=== PATIENT | male | born 1990 | race Caucasian/White ===

== ENCOUNTER 2021-01-29 01:55 | Emergency (ER) | payer OTHER, SELFPAY ==
[2021-01-29] VITALS (32 sets, daily range): BP systolic 107–132; BP diastolic 73–92; PULSE 61–91; RESP 10–20; TEMP 36.2–36.4; O2SAT 94–99
[2021-01-29] MEDS: EPINEPHrine HCL INJ 1 MG/ML AMPUL 0.3 MG IM (02:32)
[2021-01-29] MEDS: methylPREDNISolone SOD SUCC 125 MG VIAL IV PUSH (02:33)
[2021-01-29] MEDS: FAMOTIDINE 20 MG/2 ML VIAL IV PUSH (02:34)
--- NOTE | 2021-01-29 03:40 | PC.NURSE ---
Pt to ED for allergic reaction. Reports awoke approx. 2300 for work and noticed hives. took 25 mg benadryl po and reaction worsened. on arrival, pt has visible hives, edema to right eyelid, lip swelling. unsure what caused this, denies new foods/detergents/lotions/soaps. reports has been taking prEP for HIV prophylaxis x 3 months, and wondering if it could be the medication causing his symptoms. will continue to monitor.
--- NOTE | 2021-01-29 06:04 | ED.ALLEREA ---
HPI - Allergic Reaction General Chief complaint: Allergic Reaction Stated complaint: allergic Rx, facial swelling and hives Time Seen by Provider: 01/29/21 02:04 History of Present Illness HPI narrative: Patient is a 30-year-old male who presents to the ER with concerns for allergic reaction. Reports 30 minutes after he took his Truvada that he takes for PREP he developed swelling to his right eye with rash and swelling on his neck and his arms and hands. Self down his back. No difficulty breathing or swallowing but he feels a fullness in the middle of his throat and is unsure what that is related to. He has had this happen to him several times in the last 2 weeks. Unsure if it is always related to taking his Truvada. He takes no other medications. He does not correlate any food exposures with this. Denies any animals in the house. No new laundry detergent/fabric softeners/body wash/perfumes. He tried taking some Benadryl prior to arrival without improvement. Related Data Allergies Allergy/AdvReac Type Severity Reaction Status Date / Time No Known Allergies Allergy Unverified 01/29/21 02:48 Review of Systems Review of Systems: All systems reviewed & are unremarkable except as noted in HPI and below Constitutional: Constitutional: Denies chills, Denies fever(s) and Denies weakness ENT: Denies nasal congestion and Reports sore throat Cardiovascular: Cardiovascular: Denies chest pain, Denies rapid heart rate and Denies radiating jaw, neck or arm pain Respiratory: Respiratory: Denies cough, Denies dyspnea and Denies wheezing Gastrointestinal: Gastrointestinal: Denies nausea and Denies vomiting Integumentary/Breasts: Skin/Breast: Reports pruritus, Reports erythema and Reports rash PMFSH Past Medical History Medical History (Updated 01/29/21 @ 06:12 by Silvio Dempsey MD) Healthy adult male Surgical History Surgical History (Updated 01/29/21 @ 06:08 by Silvio Dempsey MD) No history of previous surgery Exam Narrative: GENERAL: Well-appearing, well-nourished, and in no acute distress. HEAD: Normocephalic, atraumatic. EYES: PERRL and EOMI. edema of the right eyelid. ENT: Mucous membranes moist. Normal-appearing posterior oropharynx without uvular edema, no tonsillar hypertrophy or exudate. NECK: Supple. Urticarial rash across anterior the neck. CHEST: Clear to auscultation. No respiratory distress. HEART: Regular rate and rhythm. Normal peripheral pulses. ABDOMEN: Soft, nontender, nondistended. EXTREMITIES: Normal range of motion. No edema. SKIN: Warm, dry. Urticarial rash to the upper extremities and chest and back. Primary in the hands for there is redness. No excoriations noted. Welts noted over the antecubital fossa bilaterally. NEURO: Alert and oriented x3. PSYCH: Normal mood and affect. Course Course Emergency Course: Symptoms resolved with epi/Pepcid/Solu-Medrol. Discharge home. Patient will take Benadryl as needed at home. Recommend discontinuing Truvada and talking to his primary care physician about other there is another medication he can take for HIV prophylaxis. Vital Signs Vital signs: Vital Signs Pulse Rate 91 01/29/21 02:20 Respiratory Rate 20 01/29/21 02:20 Blood Pressure 132/80 01/29/21 02:20 Pulse Oximetry 98 01/29/21 02:20 Temperature 97.6 F 01/29/21 02:46 Pulse Rate 76 01/29/21 05:16 Respiratory Rate 20 01/29/21 05:16 Blood Pressure 108/77 01/29/21 05:01 Pulse Oximetry 96 01/29/21 05:16 Discharge Plan Discharge Clinical Impression: Allergic reaction Patient Disposition: Home, Self-Care Condition: Stable Instructions: Urticaria (ED), General Allergic Reaction (ED) Additional Instructions: Contact your PCP eval your allergic reaction. Return the ER if you cannot breathe, you cannot swallow, you have swelling of the lips or tongue, or you have additional concerns. Take Benadryl 25 mg once every 6 hours for the next day.
== END 2021-01-29 06:29 | disposition home or self-care (01) ==
PROVIDERS: Emergency Provider Emergency Medicine; PCP Nurse Practitioner
DX: L27.0 Generalized skin eruption due to drugs and medicaments taken internally (principal); T37.5X5A Adverse effect of antiviral drugs, initial encounter; Z21 Asymptomatic human immunodeficiency virus [HIV] infection status
CPT/HCPCS: 96372; 96374; 96375; 99284; J0171; J2930

== ENCOUNTER 2024-06-19 07:39 | Emergency (ER) | payer OTHER, SELFPAY ==
[2024-06-19 07:39] VITALS: BP 120/68; PULSE 68; RESP 18; TEMP 36.7; O2SAT 95
--- OUTSIDE RECORDS SUMMARY | 2024-06-19 07:44 | XMS_ITS | Encounter Summary ---
Author Organization [facility] Address [address] [place] [address] Phone Care Team Providers Care E Commerce Marketing Manager Name Role Phone Dallas Corbett DO Primary Care Provider Kevin Donnelly MD Unavailable [phone] Encounter Details Date Type Department Care Team (Late st Contact Info) Description 12/19/2022 Orders Only [facility] [phone] Scanning, Provider Social History Tobacco Use Types Packs/Day Years Used Date Smoking Tobacco: Never Smokeless Tobacco: Never Sex and Gender Information Value Date Recorded Sex Assigned at Not on file Legal Sex Male 2:48 PM MEDICAL BILLER/CODER Gender Identity Not on file Sexual Orientation Not on file documented as of this encounter Plan of Treatment Not on file documented as of this encounter Procedures Procedure Name Priority Date/Time Associated Diagnosis Comments SCAN - RADIOLOGY/IMAGING 12/19/2022 documented in this encounter Results * SCAN - RADIOLOGY/IMAGING (12/19/2022) Anatomical Region Laterality Modality Other us Provider Scanning Final Result documented in this encounter Visit Diagnoses Not on filedocumented in this encounter Care Teams E Commerce Marketing Manager Relationship Specialty Start Date End Date Dallas Corbett DO [address] [place] [address] PCP - General Internal Medicine 09/11/22 [place] [address] [place] [address] Surgeon Orthopedic Surgery 06/04/24 documented as of this encounter
--- OUTSIDE RECORDS SUMMARY | 2024-06-19 07:44 | XMS_ITS | Referral Summary ---
Author Organization [facility] Address [address] [place] [address] Care Team Providers Care Wheel And Axle Inspector Name Role Phone Dallas Corbett DO Primary Care Provider Kevin Donnelly MD Unavailable [phone] Encounters Date Type Department Care Team Description 06/16/2024 8:30 AM HOME APPLIANCE INSTALLER Office Visit [facility] Orthopaedic Surgery [address] [place] [address] [address] [place] [address] Kevin Donnelly MD Bilateral hand numbness (Primary Dx) 06/04/2024 9:45 AM HOME APPLIANCE INSTALLER - 06/04/2024 10:15 AM HOME APPLIANCE INSTALLER Surgery [facility] [address] [place] [address] Kevin Donnelly MD RELEASE CARPAL TUNNEL - BILATERAL 06/04/2024 9:49 AM HOME APPLIANCE INSTALLER Anesthesia Event [facility] [address] [place] [address] Isabell Diaz MD Gangloff, Kerry Marie, NP 06/04/2024 8:23 AM HOME APPLIANCE INSTALLER - 06/04/2024 11:15 AM HOME APPLIANCE INSTALLER Hospital Encounter [facility] [address] [place] [address] Kevin Donnelly MD Bilateral carpal tunnel syndrome (Primary Dx) Discharge Disposition: Discharge to home or self care 05/15/2024 3:20 PM HOME APPLIANCE INSTALLER Office Visit [facility] Orthopaedic Surgery [address] [facility] 6[address] [place] [address] [place] [address] Kevin Donnelly MD Bilateral hand numbness (Primary Dx) from Last 3 Months Allergies Active Allergy Reactions Criticality Noted Date Comments Nufaavpue-Vndip-3,3-Galact ose (Alpha-Gal) Hives Medium 05/19/2024 05/26/24: Patient is able to tolerate dairy products Medications emtricitabine-t enofovir disoproxil fumerate (TRUVADA) 200-300 mg per tablet Take 1 tablet by mouth nightly 4 Active acetaminophen (TYLENOL) 325 mg tablet Take 2 tablets (650 mg total) by mouth every 6 (six) hours as needed for pain Active sertraline (ZOLOFT) 50 mg tablet Take 1 tablet (50 mg total) by mouth daily 5 Active sertraline (ZOLOFT) 25 mg tablet Take 1 tablet (25 mg total) by mouth nightly 06/16/19 Discontinu ed(Patient Reported) oxyCODONE (ROXICODONE) 5 mg immediate release tabletIndicatio ns:Pain Take 1 tablet (5 mg total) by mouth every 4 (four) hours as needed for pain 12 tablet 5 06/16/19 Discontinu ed(Patient Reported) Active Problems Problem Noted Date Diagnosed Date Bilateral carpal tunnel syndrome 05/19/2024 Social History Tobacco Use Types Packs/Day Years Used Date Smoking Tobacco: Former Cigarettes Q uit: 2022 Smokeless Tobacco: Former Chew Quit: 2022 Tobacco Cessation:Counseling Given: Not Answered AUDIT-C Answer Date Recorded Q1: How often do you have a drink containing alcohol? Never 05/19/2024 Q2: How many drinks containi ng alcohol do you have on a typical day when you are drinking? Patient does not drink Q3: How often do you have si x or more drinks on one occasion? Never 05/19/2024 Personal Safety Answer Date Recorded Have you ever been in or are you currently in a harmful physical or emotional relationship or is someone making you feel afraid or unsafe? Denies 06/04/2024 Sex and Gender Information Value Date Recorded Sex Assigned at Not on file Legal Sex Male 2:48 PM HOME APPLIANCE INSTALLER Gender Identity Not on file Sexual Orientation Not on file Last Filed Vital Signs Vital Sign Reading Time Taken Comments Blood Pressure 126/68 06/04/2024 10:45 AM HOME APPLIANCE INSTALLER Pulse 54 06/04/2024 10:45 AM HOME APPLIANCE INSTALLER Temperature 36 C (96.8 F) 06/04/2024 10:24 AM HOME APPLIANCE INSTALLER Respiratory Rate 11 06/04/2024 10:4 5 AM HOME APPLIANCE INSTALLER Oxygen Saturation 94% 06/04/2024 10: 45 AM HOME APPLIANCE INSTALLER Inhaled Oxygen Concentration - - Weight 101.4 kg (223 lb 9.6 oz) 06/04/2024 8:53 AM HOME APPLIANCE INSTALLER Height 175.3 cm (5' 9 ) 06/04/2024 8:53 AM HOME APPLIANCE INSTALLER Body Mass Index 33.02 06/04/2024 8:53 AM HOME APPLIANCE INSTALLER Plan of Treatment Not on file Procedures Procedure Name Priority Date/Time Associated Diagnosis Comments RELEASE CARPAL TUNNEL - BILATERAL 06/04/2024 9:52 AM HOME APPLIANCE INSTALLER Bilateral carpal tunnel syndrome from Last 3 Months Insurance [facility] H[facility]/PPO Address: [facility] [address] [place] [address] [facility] CHOICE PLUS [facility] HMO/PPO Address: [place] [address] Care Teams Wheel And Axle Inspector Relationship Specialty Start Date End Date Dallas Corbett DO [address] [place] [address] PCP - General Internal Medicine 09/11/22 [place] [address] [place] [address] Surgeon Orthopedic Surgery 06/04/24
--- OUTSIDE RECORDS SUMMARY | 2024-06-19 07:45 | XMS_ITS | Continuity of Care Document ---
Author Organization [facility] Address [address] [place] [address] Phone Care Team Providers Care Certified First Assistant Name Role Phone Desiree Weiss MD Unavailable Unavailable Allergies, Adverse Reactions, Alerts Substance Reaction Status Criticality No Known Allergies Active No Inform ation Medications Medication Instructions Dosage Effective Dates (start - stop) Status Comments hydroxyzine pamoate 25 mg capsule take 1 capsule by oral route 4 times every day as needed 25 MG - Active fluoxetine 20 mg capsule take 1 capsule by oral route every day 20 MG - Active Problems Condition Type Effective Dates (start - stop) Clini duc Status Comments No Known Problems Procedures Procedure Date Ofc/Outpt Visit, [place] [phone] Advance Directives Directive Yes / No Effective Date File Name No Information Encounters Encounter Description Practice Location Reason(s) For Visit Diagnoses Date Provider Providers Copied on Encounter Ofc/Outpt Visit, [address] [facility], [address] [place] [address], [id number], tel:[phone] [facility] Depression (chief complaint) Depression with anxiety Abhishek Ramírez. [address] [facility], [id number] [place], [id number], [place]. tel:[phone] Family History Family Member Type Diagnosis Age At Onset No Information Payers Payer name Insurance type Covered alliance party ID Authoriza tion(s) BCBS Out of State [id number] Social History Type Description Quantity Date Captured Comments Alcohol Use Details Unknown Caffeine Use Details Unknown Tobacco Use Status Moderate cigarette smoker (10-19 cigs/day) Smoking Status Heavy tobacco smoker Smoking Tobacco Use Details Cigarette: No Details Available Cigarette: 10 Cigarettes per day Sex Male Vital Signs Date / Time: Height Weight BMI Pulse Rate Blood Pressure Temperature Respiratory Rate Body Surface Area Head Circumference Head Circ. Percentile Wt./Zander. Percentile BMI percentile Pulse Ox Inhaled Ox 3:12 PM 68.00 in 101.605 kg (224.00 lbs) 34.0 6 kg/m eter (2) 90 /min 106/63 mm[Hg] 98.00 F 20 /min 97 % 21 % Chief Complaint And Reason For Visit From encounter dated '03/15/2016 15:06'. Depression (chief complaint). Description: This is an initial visit. There is worsening of previously reported symptoms. The patient reports functioning as somewhat difficult. The patient presents with anxious/fearful thoughts, depressed mood, excessive worry, fatigue, racing thoughts and thoughts of or suicide but denies decreased need for sleep, difficulty concentrating, difficulty falling asleep, difficulty staying asleep, increased energy, hallucinations, loss of appetite or paranoia.The patient's risk factors include family history of anxiety, history of depression and relationship problems. The patient's risk factors exclude alcoholism, of a friend or loved one, drug abuse, family history of depression, family history of bipolar disorder, financial worries, history of suicidal attempts and unemployment. The Depression is aggravated by conflict or stress. The patient's relieving factors are alcohol. The Depression is associated with irritability. Additional information: Patient states his family is in [place]; he may be moving back there within the month. He has a history of ADHD and chronic depression with worsening with relationship problems over the last month. Reason For Referral Reason For Referral No Information Plan Of Treatment Date Type Action Status Patient Education Anxiety Disorder: Care Instructions completed History Of Present Illness Encounter Date Complaint History Of Prese nt Illness Depression Depression (comments) Patient pr esents today with a friend accompanying him for support. Patient has been treated remotely with Adderall or Ritalin for ADHD but has never been treated for depression. 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 Depression This is an initi al visit. There is worsening of previously reported symptoms. The patient reports functioning as somewhat difficult. The patient presents with anxious/fearful thoughts, depressed mood, excessive worry, fatigue, racing thoughts and thoughts of or suicide but denies decreased need for sleep, difficulty concentrating, difficulty falling asleep, difficulty staying asleep, increased energy, hallucinations, loss of appetite or paranoia. The patient's risk factors include family history of anxiety, history of depression and relationship problems. The patient's risk factors exclude alcoholism, of a friend or loved one, drug abuse, family history of depression, family history of bipolar disorder, financial worries, history of suicidal attempts and unemployment. The Depression is aggravated by conflict or stress. The patient's relieving factors are alcohol. The Depression is associated with irritability. Additional information: Patient states his family is in [place]; he may be moving back there within the month. He has a history of ADHD and chronic depression with worsening with relationship problems over the last month. Functional Status Date Functional Assessmen t No Information Instructions Date Instruction Additional Infor mation Patient is not felt to be at risk of harming himself or others at this time. He is appropriate for medical therapy. Discussed a trial of fluoxetine 20 mg daily also with Vistaril given for as needed use for anxiety. Indications, benefits and common side effects and adverse reactions are discussed. Patient's questions are answered. He is advised to avoid alcohol while taking the medication. He should schedule follow-up preferably within 3-4 weeks but as he is planning to move back to [place], I did not refer him to primary care. He otherwise will follow-up as needed if problems persist or worsen. Related to Depression with anxiety Assessments Type Assessment Date assessment Depression with anxiety 016 Mental Status Date Cognitive Assessment Orientation - [place] ed to time, place, person, situation. Patient Care Teams Name Effective Dates (start - stop) Status Members No Information
--- OUTSIDE RECORDS SUMMARY | 2024-06-19 07:45 | XMS_ITS | Clinical Summary ---
Author Organization [facility] Address [address] [place] [address] Care Team Providers Care Microbiology Teacher Name Role Phone Faiza Tala GUZMAN Primary Care Provider [phone] Allergies No known active allergies Medications emtricitabine-te nofovir 200-300 MG tablet Take 1 tablet by mouth daily. 06/09/2021 Active Active Problems Problem Noted Date Diagnosed Date Blood in stool 11/08/2017 Change in bowel habit 11/08/2017 Hypocalcemia 11/08/2017 Diarrhea 11/05/2017 Anxiety 07/02/2017 Carpal tunnel syndrome 06/21/2016 Resolved Problems Problem Noted Date Diagnosed Date Resolved Date Encounter for preventive health examination 06/21/2016 01/16/2022 Immunizations Name Administration Dates Next Due HPV GARDASIL 9-VALENT 01/12/2022 Family History Medical History Relation Comments Diabetes Mother Relation Status Comments Father Alive Mother Alive Social History Tobacco Use Types Packs/Day Years Used Date Smoking Tobacco: Every Day Cigarettes Smokeless Tobacco: Never Tobacco Cessation:Counseling Given: No Alcohol Use Standard Drinks/Week Comments Yes 46.7 (1 standard drink = 0.6 oz pure alcohol) drinks every weekend. PHQ-2 Answer Date Recorded PHQ-2 Score - If the patient scores above 3, please move on to questions 3-9 4 11/10/2019 Sex and Gender Information Value Date Recorded Sex Assigned at Not on file Legal Sex Male 7:22 PM CDT Gender Identity Not on file Sexual Orientation Not on file Last Filed Vital Signs Vital Sign Reading Time Taken Comments Blood Pressure 110/70 01/12/2022 8:38 AM CDT Pulse 70 01/12/2022 8:38 AM CDT Temperature 36.1 C (97 F) 01/12/2022 8:38 AM CDT Respiratory Rate 18 01/12/2022 8:38 AM CDT Oxygen Saturation 100% 01/12/2022 8:38 AM CDT Inhaled Oxygen Concentration - - Weight 111.6 kg (246 lb) 01/12/2022 8:38 AM CDT Height 180.3 cm (5' 11 ) 01/12/2022 8:38 AM CDT Body Mass Index 34.31 01/12/2022 8:38 AM CDT Plan of Treatment Health Maintenance Due Date Last Done Comments Annual Physical 1993 Pneumococcal Vaccine: Pediatrics (0 to 5 Years) and At-Risk Patients (6 to 64 Years) (1 of 2 - PCV) 1996 PHQ-2 (Physician [place]) 2002 DTaP, Tdap and Td Vaccines (1 - Tdap) 2009 Hepatitis B Vaccines (1 of 3 - 19+ 3-dose series) 2009 HPV Vaccines (2 - 3-dose SCDM series) 02/09/2022 01/12/2022 COVID-19 Vaccine ( - season) 2024 Influenza Adult (#1) 2024 PHQ-2 (Physician [employer]) 05/07/2024 Hepatitis C Completed 09/03/2017, 08/07, 06/21/2016, Additional history exists Meningococcal B Vaccine Aged Out No l onger eligible based on patient's age to complete this topic Meningococcal Vaccine Aged Out No evelia reed eligible based on patient's age to complete this topic RSV Immunizations Under 20 Months Aged Out No longer eligible based on patient's age to complete this topic Procedures Procedure Name Priority Date/Time Associated Diagnosis Comments HEPATITIS C ANTIBODY Routine 09/03/2017 2:13 PM CDT Encounter for screening for infections with predominantly sexual mode of transmission from Last 3 Months or Most Recently Relevant to Health Maintenance Results * HEPATITIS C ANTIBODY (09/03/2017 2:13 PM CDT) HEPATITIS C AB NON-REACTI VE NON-REACTI VE 09/03/2017 9:27 PM CDT [facility] 09/03/2017 2:13 PM CDT Tala Kendall NP LABORATORY Final Result [facility] [address] [place] [address], from Last 3 Months or Most Recently Relevant to Health Maintenance Insurance [facility] Care Teams Microbiology Teacher Relationship Specialty Start Date End Date Tala [place] [address] PCP - General 11/20/16
--- OUTSIDE RECORDS SUMMARY | 2024-06-19 07:45 | XMS_ITS ---
Author Organization [facility] Address [address] [place] [address] Care Team Providers Care Elementary Education Tutor Name Role Phone Dr. Dallas Corbett Primary Care Provider PrelutskyFam [phone] REASON FOR VISIT RE:Refill prescriptions Social History Sex Assigned At : Social History Observation Description Sex Assigned At Male Encounters Encounter Location Date Provider Diagnosis [facility] [address] [place] [address] 05/31/2024 Dallas Corbett Plan Of Treatment Next Appt Details Provider Name:Dallas tate, 09/16/2024 02:30:00 PM, [address] [place], [address], Progress Notes * Nabil MENDOZADOB:1990 (33 yo M)Acc No.[id number]:05/31/2024 Patient: Daryl ASHLEY Nabil :1990 A ge:33 Y S ex:Male Address:[address] [place] [address] * true * Date: Generated for Printi ng/Faxing/eTransmitting on: 0 06/19/2024 07:44 AM SALES PROFESSIONAL
--- OUTSIDE RECORDS SUMMARY | 2024-06-19 07:45 | XMS_ITS ---
Author Organization [facility] Address [address] [place] [address] Care Team Providers Care Medical Education Manager Name Role Phone Dr. Dallas Corbett Primary Care Provider Prelutsky, Fam Unavailable [phone] AvilesAnabela Unavailable [phone] Allergies No Known Allergies Results Component Value Reference Range Notes Ct/GC TATYANA, Pharyngeal (Not y et reviewed by provider) Interpretation: Performing Lab:[facility] [place], [address] [place] [address], Phone - [phone], Director - Stewart Notes/Report: Clinical Information:SRC: SRC:OL C. trachomatis, TATYANA, Pharyn Negative Negative N. gonorrhoeae, TATYANA, Pharyn Positive Negative . RPR Reviewed date:06/17/2024 01:35:03 PM Interpretation: Performing Lab:[facility] [place], [address] [place] [address], Phone - [phone], Director - PhDIsela Notes/Report: Clinical Information:SRC: SRC:OL RPR Non Reactive Non Reactive HIV 1/2 Antibody Panel 70039 5 Reviewed date:06/17/2024 01:35:03 PM Interpretation: Performing Lab:[facility] [place], [address] [facility], Phone - [phone], Director - PhDIsela Notes/Report: Clinical Information:SRC: SRC:OL HIV Ab/p24 Ag Screen Non Reactive Non Reactive HIV-1/HIV-2 antibodies and HIV-1 p24 antigen were NOT detected. There is no laboratory evidence of HIV infection. HIV Negative HCV Antibody Reviewed date:06/17/2024 01:35:04 PM Interpretation: Performing Lab:[facility] [place], [address] [facility], Phone - [phone], Director - Cordelia Notes/Report: Clinical Information:SRC:UC SRC:OL Hep C Virus Ab Non Reactive Non Reactive HCV antibody alone does not differentiate between previously resolved infection and active infection. Equivocal and Reactive HCV antibody results should be followed up with an HCV RNA test to support the diagnosis of active HCV infection. Chlamydia/GC Amplification Reviewed date:06/18/2024 08:20:17 AM Interpretation: Performing Lab:[facility] [place], [address] [place] [address], Phone - [phone], Director - Stewart Notes/Report: Clinical Information:SRC:UC SRC:OL Chlamydia trachomatis, TATYANA Negative Negative Neisseria gonorrhoeae, TATYANA Negative Negative Ct/GC TATYANA, Rectal Reviewed date:06/18/2024 08:20:17 AM Interpretation: Performing Lab:[facility] [place], [address] [place] [address], Phone - [phone], Director - Stewart Notes/Report: Clinical Information:SRC:UC SRC:OL C. trachomatis, TATYANA, Rectal Negative Negative N. gonorrhoeae, TATYANA, Rectal Negative Negative REASON FOR VISIT ST Pt, 3 month f/u Medications Medication SIG (Take, Route, Fr equency, Duration) Notes Start Date End Date Status valACYclovir HCl 1 GM 1 tablet Orally Tw ice a day for 30 days 08/25/2022 09/16/2024 Active traZODone HCl 50 MG 1-2 tablet at bedtim e as needed Orally Once a day for 30 days 02/14/2024 Active traZODone HCl 50 MG 0.5 - 1 tablet at be dtime as needed Orally Once a day for 30 days 02/14/2024 Active Sertraline HCl 50 MG 1 tablet Orally Onc e a day for 30 days 10/07/2023 Active Social History Sex Assigned At : Social History Observation Description Sex Assigned At Male Vital Signs Temperature 98.4 degrees Fahrenheit 06/16/19 25 Heart Rate 73 /min 06/16/2024 Blood pressure systolic 100 mm Hg 06/16/19 25 Blood pressure diastolic 70 mm Hg 02/10/2 025 Height 69 in 06/16/2024 Weight 228.4 lbs 06/16/2024 BMI 33.73 kg/m2 06/16/2024 Oximetry 97 % 06/16/2024 Encounters Encounter Location Date Provider Diagnosis [facility] [address] [place] [address] 06/16/2024 Anabela Aviles High risk sexual behavior, unspecified type Z72.51 ; Encounter for screening for infections with predominantly sexual mode of transmission Z11.3 ; Encounter for screening for HIV Z11.4 ; Encounter for screening for other viral diseases Z11.59 and MDD (major depressive disorder), recurrent episode, mild F33.0 Assessments Encounter Date Diagnosis (ICD Code) Assessment Notes Treatment Notes Treatment Clinical Notes Section Notes 06/16/2024 High risk sexual behavior, unspecified type (ICD-10 - Z72.51) gave him 3 months samples of Descovy due to nausea 06/16/2024 Encounter for screening for infections with predominantly sexual mode of transmission (ICD-10 - Z11.3) 06/16/2024 Encounter for screening for HIV (ICD-10 - Z11.4) 06/16/2024 Encounter for screening for other viral diseases (ICD-10 - Z11.59) 06/16/2024 MDD (major depressive disorder), recurrent episode, mild (ICD-10 - F33.0) 06/16/2024 Other Time was spent giving the patient safer sex counseling. Condoms were offered to patient. Plan Of Treatment Medication Medication Name Sig Start Date Stop Date Notes Emtricitabine-Tenofovir DF 200-300 MG 1 tablet Orally Once a day 10/07/2023 Sertraline HCl 50 MG 1 tablet Orally Onc e a day for 30 days 10/07/2023 Treatment Notes Assessment Notes High risk sexual behavior, unspecified t ype gave him 3 months samples of Descovy due to nausea Pending Test Test Name Order Date Ct/GC TATYANA, Pharyngeal 06/16/2024 Next Appt Details Follow Up: [address], Reason: Provider Name:Dallas tate, 09/16/2024 02:30:00 PM, [address] [place], [address], Progress Notes * Mery MENDOZA:1990 (33 yo M)Acc No.[id number]:06/16/2024 Progress Notes Patient: Nabil PASCUAL Provider: HAKEEM Moulton :1990 A ge:33 Y S ex:Male Date:06/16/2024 Address:[facility] [address], [place] [address] Pcp:Dr. Dallas Corbett Subjective: * Chief Complaints: * [address] Pt, 3 month f/u. * HPI: G eneral: Gurdeep is here for PrEP follow up along with STD testing. He does admits that since taking oral PrEP he has had some increased nausea. * Medical History: C olonoscopy: No have onescheduled, DEXA (Bone Density) Scan: No, Mammogram: N, Pap: No, AIDS/HIV: No, alcohol abuse: No, acid reflux: No, allergies, food: Yes, allergies, seasonal: Yes, anemia: No, arthritis: No, asthma: No, attention deficit disorder: No, anxiety: Yes, bipolar disorder: No, bladder infections, chronic: No, : No, chronic diarrhea: Yes, cough, chronic: No, dementia: No, depression: Yes, deep vein thrombosis: No, diabetes mellitus: No, drug abuse: No, eating disorder: No, gout: Yes, insomnia: No, inflammatory bowel disease: No, myocardial infarction: No, neuropathy: No, panic attacks: No, osteoporosis: No, pulmonary embolism: No, rheumatoid arthritis: No, seizures: No, sleep apnea: Yes, stroke: No, white coat hypertension: No, Other not mentioned: No. * Medications: T aking traZODone HCl 50 MG Tablet 0.5 - 1 tablet at bedtime as needed Orally Once a day , Taking traZODone HCl 50 MG Tablet 1-2 tablet at bedtime as needed Orally Once a day , Taking valACYclovir HCl 1 GM Tablet 1 tablet Orally Twice a day , stop date 09/16/2024, Taking Emtricitabine-Tenofovir DF 200-300 MG Tablet 1 tablet Orally Once a day , Taking Sertraline HCl 50 MG Tablet 1 tablet Orally Once a day , Discontinued DULoxetine HCl 60 MG Capsule Delayed Release Particles 1 capsule Orally Once a day , Discontinued Apretude(Cabotegravir ER) 600 MG/3ML Suspension Extended Release inject 3 milliliter Intramuscular every two months , Notes to Pharmacist: Changed insurance. Already on maintenance dosing, Discontinued Apretude(Cabotegravir ER) 600 MG/3ML Suspension Extended Release as directed Intramuscular monthly , Medication List reviewed and reconciled with the patient * Allergies: N .K.D.A. * Implants: Objective: * Vitals: T emp:98.4F, HR:73/min, BP:100/70mm Hg, Ht: 69 in, Wt:228.4lbs, Wt-k.6 kg, BMI:33.73Index, Oxygen sat %:97%, Ht-cm: 175.26 cm. Assessment: * Assessment: 1. H igh risk sexual behavior, unspecified type - Z72.51 (Primary) 2 . E ncounter for screening for infections with predominantly sexual mode of transmission - Z11.3 ? 3 . E ncounter for screening for HIV - Z11.4 4 . E ncounter for screening for other viral diseases - Z11.59 5 . M DD (major depressive disorder), recurrent episode, mild - F33.0 Plan: * Treatment: Value Reference Range R WY Non Reactive Non Reactive - * This lab was reviewed by Brian Aviles on 06/17/2024 at 13:35 PM HEADLINE WRITER ?LAB: HIV 1/2 Antibody Panel [id number] (Collection Date & Time - 06/16/2024 11:49 AM)* Value Reference Range H IV Screen 4th Generation wRfx Non Reactive Non Reacti ve - * This lab was reviewed by Brian Aviles on 06/17/2024 at 13:35 PM HEADLINE WRITER ?LAB: HCV Antibody (Collection Date & Time - 06/16/2024 11:49 AM)* Value Reference Range H ep C Virus Ab Non Reactive Non Reactive - * This lab was reviewed by Brian Aviles on 06/17/2024 at 13:35 PM HEADLINE WRITER ?LAB: Chlamydia/GC Amplification (Collection Date & Time - 06/16/2024 11:49 AM)* Value Reference Range C hlamydia trachomatis, TATYANA Negative Negative - * N eisseria gonorrhoeae, TATYANA Negative Negative - * STD testing is negativeThis lab was reviewed by Anabela Aviles on 06/18/2024 at 08:20 AM HEADLINE WRITER ?LAB: Ct/GC TATYANA, Rectal (Collection Date & Time - 06/16/2024 11:49 AM)* Value Reference Range N eisseria gonorrhoeae, TATYANA Negative Negative - * C hlamydia trachomatis, TATYANA Negative Negative - * STD testing is negativeThis lab was reviewed by Anabela Aviles on 06/18/2024 at 08:20 AM HEADLINE WRITER ?LAB: Ct/GC TATYANA, Pharyngeal (Collection Date & Time - 06/16/2024 11:49 AM) Notes: gave him 3 months samples of Descovy due to nausea??2.?Encounter for screening for infections with predominantly sexual mode of transmission?LAB: RPR (Collection Date & Time - 06/16/2024 11:49 AM)* Value Reference Range R WY Non Reactive Non Reactive - * This lab was reviewed by Brian Aviles on 06/17/2024 at 13:35 PM HEADLINE WRITER ?LAB: HIV 1/2 Antibody Panel [id number] (Collection Date & Time - 06/16/2024 11:49 AM)* Value Reference Range H IV Screen 4th Generation wRfx Non Reactive Non Reacti ve - * This lab was reviewed by Brian Aviles on 06/17/2024 at 13:35 PM HEADLINE WRITER ?LAB: HCV Antibody (Collection Date & Time - 06/16/2024 11:49 AM)* Value Reference Range H ep C Virus Ab Non Reactive Non Reactive - * This lab was reviewed by Brian Aviles on 06/17/2024 at 13:35 PM HEADLINE WRITER ?LAB: Chlamydia/GC Amplification (Collection Date & Time - 06/16/2024 11:49 AM)* Value Reference Range C hlamydia trachomatis, TATYANA Negative Negative - * N eisseria gonorrhoeae, TATYANA Negative Negative - * STD testing is negativeThis lab was reviewed by Anabela Aviles on 06/18/2024 at 08:20 AM HEADLINE WRITER ?LAB: Ct/GC TATYANA, Rectal (Collection Date & Time - 06/16/2024 11:49 AM)* Value Reference Range N eisseria gonorrhoeae, TATYANA Negative Negative - * C hlamydia trachomatis, TATYANA Negative Negative - * STD testing is negativeThis lab was reviewed by Anabela Aviles on 06/18/2024 at 08:20 AM HEADLINE WRITER ?LAB: Ct/GC TATYANA, Pharyngeal (Collection Date & Time - 06/16/2024 11:49 AM) 3.?Encounter for screening for HIV?LAB: HIV 1/2 Antibody Panel [id number] (Collection Date & Time - 06/16/2024 11:49 AM)* Value Reference Range H IV Screen 4th Generation wRfx Non Reactive Non Reacti ve - * This lab was reviewed by Brian Aviles on 06/17/2024 at 13:35 PM HEADLINE WRITER 4.?Encounter for screening for other viral diseases?LAB: HCV Antibody (Collection Date & Time - 06/16/2024 11:49 AM)* Value Reference Range H ep C Virus Ab Non Reactive Non Reactive - * This lab was reviewed by Brian Aviles on 06/17/2024 at 13:35 PM HEADLINE WRITER 5.?MDD (major depressive disorder), recurrent episode, mild? Refill Sertraline HCl Tablet, 50 MG, 1 tablet, Orally, Once a day, 30 days, 30, Refills 5.? 6.?Others? Clinical Notes:Time was spent giving the patient safer sex counseling. Condoms were offered to patient.?? * Procedure Codes: 9 9401 P/M ACADEMIC COMPUTING DIRECTOR, INDIV 15 MIN, Modifiers: 25 , 69727 VENIPUNCT, ROUTINE*, G8783 NORMAL BP READING DOC F/U NOT RQR * Follow Up: [address] * Billing Information: * Visit Code: 12755 Office Visit- Est Pt.- Level 4. Modifiers: 25 * Procedure Codes: 09700 P/M ACADEMIC COMPUTING DIRECTOR, INDIV 15 MIN. Modifiers: 80355 VENIPUNCT, ROUTINE*. G8783 NORMAL BP READING DOC F/U NOT RQR. Care Plan Details* * LINE WRITER Sign off status: Completed true * Provider: HAKEEM Moulton Date: 0 06/16/2024 Generated for Printi ng/Faxing/eTransmitting on: 06/19/2024 07:45 AM HEADLINE WRITER History and Physical Notes * HPI (History of Present Illness) Category Sub-Category Detail Notes Category Not es General Gurdeep is here for PrEP follow up along with STD testing. He does admits that since taking oral PrEP he has had some increased nausea.
--- OUTSIDE RECORDS SUMMARY | 2024-06-19 07:45 | XMS_ITS ---
Author Organization [facility] Address [address] [place] [address] Care Team Providers Care Concrete Laborer Name Role Phone Dr. Dallas Corbett Primary Care Provider PrelutskyFam [phone] REASON FOR VISIT [place] Social History Sex Assigned At : Social History Observation Description Sex Assigned At Male Encounters Encounter Location Date Provider Diagnosis [facility] [address] [place] [address] 06/16/2024 Dallas Corbett Plan Of Treatment Next Appt Details Provider Name:Dallas tate, 09/16/2024 02:30:00 PM, [address] [place], [address], Progress Notes * Nabil MENDOZADOB:1990 (33 yo M)Acc No.[id number]:06/16/2024 Patient: Daryl ASHLEY Nabil :1990 A ge:33 Y S ex:Male Address:[address] [place] [address] * true * Date: Generated for Printi ng/Faxing/eTransmitting on: 0 06/19/2024 07:45 AM PARTS DRIVER
--- OUTSIDE RECORDS SUMMARY | 2024-06-19 07:45 | XMS_ITS | Clinical Summary ---
Author Organization [facility] Address [address] [place] [address] Care Team Providers Care Paid Intern Name Role Phone Dallas Corbett Primary Care Provider Kevin Donnelly MD Unavailable Allergies Active Allergy Reactions Criticality Noted Date Comments Bbobryenv-Wwrqv-3,3-Galact ose (Alpha-Gal) Hives Medium 05/19/2024 05/26/24: Patient [...] Diagnosed Date Bilateral carpal tunnel syndrome 05/19/2024 Encounters Date Type Department Care Team Description 06/16/2024 8:30 AM DECATING MACHINE OPERATOR Office Visit [facility] [address] [place] [address] [address] [place] [address] Kevin Donnelly MD Bilateral hand numbness (Primary Dx) 06/04/2024 9:49 AM DECATING MACHINE OPERATOR Anesthesia Event [facility] [address] [place] [address] Isabell Diaz MD Gangloff, Kerry Marie, NP 06/04/2024 9:45 AM DECATING MACHINE OPERATOR - 06/04/2024 10:15 AM DECATING MACHINE OPERATOR Surgery [facility] [address] [place] [address] Kevin Donnelly MD RELEASE CARPAL TUNNEL - BILATERAL 06/04/2024 8:23 AM DECATING MACHINE OPERATOR - 06/04/2024 11:15 AM DECATING MACHINE OPERATOR Hospital Encounter [facility] [address] [place] [address] Kevin Donnelly MD Bilateral carpal tunnel syndrome (Primary Dx) Discharge Disposition: Discharge to home or self care 05/15/2024 3:20 PM DECATING MACHINE OPERATOR Office Visit [facility] [address] [facility] 6th [place] [address] [place] [address] Kevin Donnelly MD Bilateral hand numbness (Primary Dx) from Last 3 Months Surgical History Surgery Date Site/Laterality Comments WISDOM TOOTH EXTRACTION 05/07/2011 - 05/06/2012 Medical History Medical History Date Comments Anxiety Depression Family History Medical History Relation Name Comments Diabetes Father Diabetes Mother Anesthesia problems Neg Hx Relation Name Status Comments Father Mother Social History Tobacco Use Types Packs/Day Years [...] on file Legal Sex Male 2:48 PM DECATING MACHINE OPERATOR Gender Identity Not on file Sexual Orientation Not on file Obstetrics History Last Filed Vital Signs Vital Sign Reading Time Taken Comments Blood Pressure 126/68 06/04/2024 10:45 AM DECATING MACHINE OPERATOR Pulse 54 06/04/2024 10:45 AM DECATING MACHINE OPERATOR Temperature 36 C (96.8 F) 06/04/2024 10:24 AM DECATING MACHINE OPERATOR Respiratory Rate 11 06/04/2024 10:4 5 AM DECATING MACHINE OPERATOR Oxygen Saturation 94% 06/04/2024 10: 45 AM DECATING MACHINE OPERATOR Inhaled Oxygen Concentration - - Weight 101.4 kg (223 lb 9.6 oz) 06/04/2024 8:53 AM DECATING MACHINE OPERATOR Height 175.3 cm (5' 9 ) 06/04/2024 8:53 AM DECATING MACHINE OPERATOR Body Mass Index 33.02 06/04/2024 8:53 AM DECATING MACHINE OPERATOR Plan of Treatment Health Maintenance Due Date Last Done Comments Depression Screening 1990 Hepatitis C Screening 1990 DTaP/Tdap/Td Vaccine (1 - Tdap) 2001 Varicella Vaccines (1 of 2 - 13+ 2-dose series) 07/15/2003 Hepatitis B Screening 2008 Regular Well Visit/Exam 18-64 2008 Influenza Vaccine (#1) 2024 HPV Vaccines Completed 06/12/2022, 03/02/2022, 01/12/2022 Pneumococcal vaccine <65 Aged Out No longer eligible based on patient's age to complete this topic Procedures Procedure Name Priority Date/Time Associated Diagnosis Comments RELEASE CARPAL TUNNEL - BILATERAL 06/04/2024 9:52 AM DECATING MACHINE OPERATOR Bilateral carpal tunnel syndrome from Last 3 Months Insurance [facility] PL[facility] PL[facility] Care Teams Paid Intern Relationship Specialty Start Date End Date Dallas Corbett DO [address] [place] [address] PCP - General Internal Medicine 09/11/22 [place] [id number] [place] [address] Surgeon Orthopedic Surgery 06/04/24
--- NOTE | 2024-06-19 07:48 | PC.NURSE ---
THERE IS A 1 CM OPEN AREA NOTED TO INCISION, BLEEDING CONTROLLED, AND NO GAPING NOTED, SUPERFICIAL OPENING NOTED.
--- NOTE | 2024-06-19 07:53 | ED.WOUNDLAC ---
HPI - Wound/Laceration General Chief Complaint: Wound/Laceration Stated Complaint: rt hand injury Time Seen by Provider: 06/19/24 07:44 Source: patient Mode of arrival: ambulatory Limitations: no limitations History of Present Illness HPI narrative: this is a 33-year-old male who presents with some status post carpal tunnel surgery on the right that fell on a patch of ice and opened a 1 suture on his carpal tunnel surgery non gaping no bleeding has good range of motion in his wrist no pain elicited no numbness or tingling. Onset (ago): hour(s) Location: other Extremity Location: Right: wrist ( Status post carpal tunnel surgery) Place: outdoors Patient tetanus UTD: Yes Context: accidental Related Data Allergies Allergy/AdvReac Type Severity Reaction Status Date / Time No Known Allergies Allergy Unverified 06/19/24 07:40 Review of Systems Review of Systems: All systems reviewed & are unremarkable except as noted in HPI and below PMFSH Past Medical History Medical History Healthy adult male Surgical History Surgical History No history of previous surgery Exam Const: General: healthy appearing and no acute distress Nutritional Appearance: well nourished Orientation/consciousness: patient oriented x3 Limitations: no limitations Resp: Effort & Inspection: normal respiratory effort Auscultation: clear to auscultation bilaterally Cardio: Rate: regular rate Rhythm: regular rhythm GI: GI Palp: Yes Soft to palpation Skin: Wounds: wounds noted Neuro: General: patient oriented x3 and moves all extremities Course Course Emergency Course: Steri-Strips placed on wound site on the right wrist Vital Signs Vital signs: Vital Signs Temperature 36.7 C 06/19/24 07:39 Pulse Rate 68 06/19/24 07:39 Respiratory Rate 18 06/19/24 07:39 Blood Pressure 120/68 06/19/24 07:39 Pulse Oximetry 95 06/19/24 07:39 Oxygen Delivery Room Air 06/19/24 07:39 Temperature 36.7 C 06/19/24 07:39 Pulse Rate 68 06/19/24 07:39 Respiratory Rate 18 06/19/24 07:39 Blood Pressure 120/68 06/19/24 07:39 Pulse Oximetry 95 06/19/24 07:39 Oxygen Delivery Room Air 06/19/24 07:39 Critical Care Time Critical Care Time Critical Care Time: No Discharge Plan Discharge Clinical Impression: Laceration Patient Disposition: Home, Self-Care Condition: Stable Instructions: Antibiotic Form, Skin Avulsion (ED), Skin Adhesive Care (ED) Additional Instructions: follow-up with primary care physician if symptoms persist or worsen. Patient Language: Sammarinese Follow-up/Referrals: UNKNOWN,DOCTOR [Primary Care Provider] - Time of Disposition: 07:56
--- OUTSIDE RECORDS SUMMARY | 2024-06-19 08:19 | XMS_ITS | Clinical Summary ---
Author Organization [facility] Address [address] [place] [address] Care Team Providers Care Cable Installation Manager Name Role Phone Faiza Tala GUZMAN Primary Care Provider [phone] Allergies No known active allergies Medications emtricitabine-te [...] of 2 - PCV) 1996 PHQ-2 (Physician [place]) 2002 DTaP, Tdap and Td Vaccines (1 - Tdap) 2009 Hepatitis B Vaccines (1 of 3 - 19+ 3-dose series) 2009 HPV Vaccines (2 - 3-dose SCDM series) 02/09/2022 01/12/2022 COVID-19 Vaccine ( - season) 2024 Influenza Adult (#1) 2024 PHQ-2 (Physician [place]) 05/07/2024 Hepatitis C Completed 09/03/2017, 08/07, 06/21/2016, [...] VE NON-REACTI VE 09/03/2017 9:27 PM CDT [facility] 09/03/2017 2:13 PM CDT Tala Kendall NP LABORATORY Final Result [facility] [address] [place] [address], from Last 3 Months or Most Recently Relevant to Health Maintenance Insurance [facility] Care Teams Cable Installation Manager Relationship Specialty Start Date End Date Tala [place] [address] PCP - General 11/20/16
--- OUTSIDE RECORDS SUMMARY | 2024-06-19 08:19 | XMS_ITS | Continuity of Care Document ---
Author Organization [facility] Address [address] [place] [phone] Phone Care Team Providers Care Habilitation Assistant Name Role Phone Desiree Weiss MD Unavailable Unavailable Allergies, Adverse Reactions, Alerts Substance Reaction Status Criticality No Known Allergies Active No Inform ation Medications Medication Instructions Dosage Effective Dates (start - stop) Status Comments fluoxetine 20 mg capsule take 1 capsule by oral route every day 20 MG - Active hydroxyzine pamoate 25 mg capsule take 1 capsule by oral route 4 times every day as needed 25 MG - Active Problems Condition Type Effective Dates (start - stop) Clini duc Status Comments No Known Problems Procedures Procedure Date Ofc/Outpt Visit, [place] [address] [id number] Advance Directives Directive Yes / No Effective Date File Name No Information Encounters Encounter Description Practice Location Reason(s) For Visit Diagnoses Date Provider Providers Copied on Encounter Ofc/Outpt Visit, [address] [facility], [address] [place] [address], [id number], tel:[phone] Walk In [facility] Depression (chief complaint) Depression with anxiety Abhishek Ramírez. [address] [facility], [id number] [place], [id number], [place]. tel:[phone] Family History Family Member Type Diagnosis Age At Onset No Information Payers Payer name Insurance type Covered libertarian ID Authoriza tion(s) [employer] Out of State [id number] Social History Type Description Quantity Date Captured [...] information: Patient states his family is in [place]; he may be moving back there within [...] for depression. 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 He otherwise will follow-up as needed if problems persist or worsen. Related to Depression with anxiety Assessments Type Assessment Date assessment Depression with anxiety 016 Mental Status Date Cognitive Assessment Orientation - [place] ed to time, place, person, situation. Patient Care Teams Name Effective Dates (start - stop) Status Members No Information
--- OUTSIDE RECORDS SUMMARY | 2024-06-19 08:19 | XMS_ITS | Patient Health Record ---
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 Dallas Corbett Primary Care Provider Prelutskadrienen, Fam Unavailable [phone] Donald Seth Unavailable [phone] AvilesAnabela Unavailable [phone] Allergies No Known Allergies Results Component Value Reference Range Notes Ct/GC TATYANA, Pharyngeal (Not y et reviewed by provider) Interpretation: Performing Lab:[email or web address], [address] [place] [address], Phone - [phone], Director - Stewart Notes/Report: Clinical Information:SRC: SRC:OL C. trachomatis, TATYANA, Pharyn Negative Negative N. gonorrhoeae, TATYANA, Pharyn Positive Negative . RPR Reviewed date:06/17/2024 01:35:03 PM Interpretation: Performing Lab:[facility], [address] [place] [address], Phone - [phone], Director - Cordelia Notes/Report: Clinical Information:SRC: SRC:OL RPR Non Reactive Non Reactive HIV 1/2 Antibody Panel [id number] Reviewed date:06/17/2024 01:35:03 PM Interpretation: Performing Lab:[email or web address], [address] [facility], Phone - [phone], Director - PhDIsela Notes/Report: Clinical Information:SRC: SRC:OL HIV Ab/p24 Ag Screen Non Reactive Non Reactive HIV-1/HIV-2 antibodies and HIV-1 p24 antigen were NOT detected. There is no laboratory evidence of HIV infection. HIV Negative HCV Antibody Reviewed date:06/17/2024 01:35:04 PM Interpretation: Performing Lab:[email or web address] [place], [address] [facility], Phone - [phone], Director - Cordelia Notes/Report: Clinical Information:SRC:UC SRC:OL Hep C Virus Ab Non Reactive Non Reactive HCV antibody alone does not differentiate between previously resolved infection and active infection. Equivocal and Reactive HCV antibody results should be followed up with an HCV RNA test to support the diagnosis of active HCV infection. Chlamydia/GC Amplification Reviewed date:06/18/2024 08:20:17 AM Interpretation: Performing Lab:[facility], [address] [place] [address], Phone - [phone], Director - Stewart Notes/Report: Clinical Information:SRC: SRC:OL Chlamydia trachomatis, TATYANA Negative Negative Neisseria gonorrhoeae, TATYANA Negative Negative Ct/GC TATYANA, Rectal Reviewed date:06/18/2024 08:20:17 AM Interpretation: Performing Lab:[facility], [address] [place] [address], Phone - [phone], Director - Stewart Notes/Report: Clinical Information:SRC: SRC:OL C. trachomatis, TATYANA, Rectal Negative Negative N. gonorrhoeae, TATYANA, Rectal Negative Negative Basic Metabolic Panel (8) Reviewed date:02/15/2024 08:00:05 AM Interpretation: Performing Lab:[email or web address] [place], [address] [facility], Phone - [phone], Director - Cordelia Notes/Report: Clinical Information:SRC:UC SRC:TH Glucose 95 70-99 mg/dL BUN 13 6-20 mg/dL Creatinine 0.83 0.76-1.27 mg/dL eGFR 119 >59 mL/min/1.73 BUN/Creatinine Ratio 16 9-20 Sodium 138 134-144 mmol/L Potassium 4.4 3.5-5.2 mmol/L Chloride 105 96-106 mmol/L Carbon Dioxide, Total 19 20-29 mmol/L Calcium 9.3 8.7-10.2 mg/dL Ct/GC TATYANA, Pharyngeal Reviewed date:02/15/2024 08:58:29 PM Interpretation: Performing Lab:[facility], [address] [place] [address], Phone - [phone], Director - Stewart Notes/Report: Clinical Information:SRC: SRC:TH C. trachomatis, TATYANA, Pharyn Negative Negative N. gonorrhoeae, TATYANA, Pharyn Negative Negative Ct/GC TATYANA, Rectal Reviewed date:02/17/2024 02:58:10 PM Interpretation: Performing Lab:[facility], [address] [place] [address], Phone - [phone], Director - Stewart Notes/Report: Clinical Information:SRC: SRC:TH C. trachomatis, TATYANA, Rectal Negative Negative N. gonorrhoeae, TATYANA, Rectal Negative Negative Chlamydia/GC Amplification Reviewed date:02/15/2024 08:58:29 PM Interpretation: Performing Lab:[facility], [address] [place] [address], Phone - [phone], Director - Stewart Notes/Report: Clinical Information:SRC: SRC:TH Chlamydia trachomatis, TATYANA Negative Negative Neisseria gonorrhoeae, TATYANA Negative Negative HCV Antibody Reviewed date:02/15/2024 08:00:05 AM Interpretation: Performing Lab:[email or web address], [address] [place] [address], Phone - [phone], Director - Cordelia Notes/Report: Clinical Information:SRC: SRC: Hep C Virus Ab Non Reactive Non Reactive HCV antibody alone does not differentiate between previously resolved infection and active infection. Equivocal and Reactive HCV antibody results should be followed up with an HCV RNA test to support the diagnosis of active HCV infection. HIV 1/2 Antibody Panel [id number] 5 Reviewed date:02/15/2024 08:58:29 PM Interpretation: Performing Lab:[email or web address], [address] [place] [address], Phone - [phone], Director - Cordelia Notes/Report: Clinical Information:SRC: SRC: HIV Ab/p24 Ag Screen Non Reactive Non Reactive HIV-1/HIV-2 antibodies and HIV-1 p24 antigen were NOT detected. There is no laboratory evidence of HIV infection. HIV Negative RPR Reviewed date:02/15/2024 08:00:05 AM Interpretation: Performing Lab:[email or web address] [facility], [address] [place] [address], Phone - [phone], Director - Cordelia Notes/Report: Clinical Information:SRC:UC SRC:TH RPR Non Reactive Non Reactive CHLAMYDIA/N. GONORRHOEAE RNA , TMA, RECTAL Reviewed date:09/25/2023 08:27:43 PM Interpretation: Performing Lab:[facility]-[id number] Zander NegreteSvjameTX[address] May Vera MD Notes/Report: 0; 0; 0; 0 CHLAMYDIA TRACHOMATIS RNA, TMA, RECTAL NOT DETECTED NOT DETECTED NEISSERIA GONORRHOEAE RNA, TMA, RECTAL NOT DETECTED NOT DETECTED COMMENT The analytical performance characteristics of this assay have been determined by [employer]. The modifications have not been cleared or approved by the FDA. This assay has been validated pursuant to the CLIA regulations and is used for clinical purposes. CHLAMYDIA/N. GONORRHOEAE RNA , TMA, THROAT Reviewed date:09/25/2023 08:27:43 PM Interpretation: Performing Lab:[facility]-[id number] Wilner NegreteaKS[address] May Vera MD Notes/Report: 0; 0; 0; 0 CHLAMYDIA TRACHOMATIS RNA, TMA, THROAT NOT DETECTED NOT DETECTED NEISSERIA GONORRHOEAE RNA, TMA, THROAT NOT DETECTED NOT DETECTED COMMENT The analytical performance characteristics of this assay have been determined by [employer]. The modifications have not been cleared or approved by the FDA. This assay has been validated pursuant to the CLIA regulations and is used for clinical purposes. CHLAMYDIA/N. GONORRHOEAE RNA , TMA Reviewed date:09/25/2023 08:27:43 PM Interpretation: Performing Lab:[facility]-Fvymax12681Wilner VelasquezaKS[address] May Vera MD Notes/Report: 0 CHLAMYDIA TRACHOMATIS RNA, TMA, UROGENITAL NOT DETECTED NOT DETECTED NEISSERIA GONORRHOEAE RNA, TMA, UROGENITAL NOT DETECTED NOT DETECTED COMMENT The analytical performance characteristics of this assay, when used to test SurePath(TM) specimens have been determined by [employer]. The modifications have not been cleared or approved by the FDA. This assay has been validated pursuant to the CLIA regulations and is used for clinical purposes. For additional information, please refer to https://education.[employer]/faq/FWM333 (This link is being provided for information/ educational purposes only.) HIV 1 RNA, QUANTITATIVE REAL TIME PCR Reviewed date:09/28/2023 07:56:57 AM Interpretation: Performing Lab:[facility]-Tldihl66772Shelbi Vanegas[address] May Vera MD Notes/Report: 0 HIV 1 RNA, QN PCR NOT DETECTED NOT DETECTED copies/mL HIV 1 RNA, QN PCR NOT DETECTED NOT DETECTED L og copies/mL This test was performed using Real-Time Polymerase Chain Reaction. Reportable Range: 20 copies/mL to 10,000,000 copies/mL (1.30 log copies/mL to 7.00 log copies/mL). HEPATITIS C AB W/REFL TO HCV RNA, QN, PCR Reviewed date:09/25/2023 08:27:43 PM Interpretation: Performing Lab:[facility] JOHN [place] May Vera MD Notes/Report: 0; 0; 0; 0 HEPATITIS C ANTIBODY NON-REACTIVE NON-REACTIVE HCV antibody was non-reactive. There is no laboratory evidence of HCV infection. In most cases, no further action is required. However, if recent HCV exposure is suspected, a test for HCV RNA (test code 23286) is suggested. For additional information please refer to http://education.[employer]iasm[employer]/faq/ZSN31c2 (This link is being provided for informational/ educational purposes only.) RPR (MONITOR) W/REFL TITER Reviewed date:09/25/2023 08:27:43 PM Interpretation: Performing Lab:[facility] [place] May Vera MD Notes/Report: 0; 0; 0; 0 RPR (MONITOR) W/REFL TITER NON-REACTIVE NON-REACTIVE CHLAMYDIA/N. GONORRHOEAE RNA , TMA, RECTAL Reviewed date:07/11/2023 07:15:04 AM Interpretation: Performing Lab:[facility] [place] May Vera MD Notes/Report: 0; 0; 0; 0 CHLAMYDIA TRACHOMATIS RNA, TMA, RECTAL NOT DETECTED NOT DETECTED NEISSERIA GONORRHOEAE RNA, TMA, RECTAL NOT DETECTED NOT DETECTED COMMENT The analytical performance characteristics of this assay have been determined by [employer]. The modifications have not been cleared or approved by the FDA. This assay has been validated pursuant to the CLIA regulations and is used for clinical purposes. CHLAMYDIA/N. GONORRHOEAE RNA , TMA, THROAT Reviewed date:07/11/2023 07:15:04 AM Interpretation: Performing Lab:[facility]-Otvtsm62318 Arnoldo Chavez, QgrsesMT[address] May Vera MD Notes/Report: 0; 0; 0; 0 CHLAMYDIA TRACHOMATIS RNA, TMA, THROAT NOT DETECTED NOT DETECTED NEISSERIA GONORRHOEAE RNA, TMA, THROAT NOT DETECTED NOT DETECTED COMMENT The analytical performance characteristics of this assay have been determined by [employer]. The modifications have not been cleared or approved by the FDA. This assay has been validated pursuant to the CLIA regulations and is used for clinical purposes. CHLAMYDIA/N. GONORRHOEAE RNA , TMA Reviewed date:07/11/2023 07:15:04 AM Interpretation: Performing Lab:[facility]-Vzffar40582 Arnoldo Chavez, IwzathRS[address] May Vera MD Notes/Report: 0 CHLAMYDIA TRACHOMATIS RNA, TMA, UROGENITAL NOT DETECTED NOT DETECTED NEISSERIA GONORRHOEAE RNA, TMA, UROGENITAL NOT DETECTED NOT DETECTED COMMENT The analytical performance characteristics of this assay, when used to test SurePath(TM) specimens have been determined by [employer]. The modifications have not been cleared or approved by the FDA. This assay has been validated pursuant to the CLIA regulations and is used for clinical purposes. For additional information, please refer to https://education.[employer]/faq/ZYD426 (This link is being provided for information/ educational purposes only.) HIV 1 RNA, QUANTITATIVE REAL TIME PCR Reviewed date:07/10/2023 06:25:51 PM Interpretation: Performing Lab:[facility]-Zrpzfg07673 Arnoldo Chavez, JgirhmEH[address] May Vera MD Notes/Report: 0 HIV 1 RNA, QN PCR NOT DETECTED NOT DETECTED copies/mL HIV 1 RNA, QN PCR NOT DETECTED NOT DETECTED L og copies/mL This test was performed using Real-Time Polymerase Chain Reaction. Reportable Range: 20 copies/mL to 10,000,000 copies/mL (1.30 log copies/mL to 7.00 log copies/mL). HEPATITIS C AB W/REFL TO HCV RNA, QN, PCR Reviewed date:07/10/2023 06:25:51 PM Interpretation: Performing Lab:[facility]-[id number] Arnoldo Chavez, NkuozgEV[address] May Vera MD Notes/Report: 0; 0; 0; 0 HEPATITIS C ANTIBODY NON-REACTIVE NON-REACTIVE HCV antibody was non-reactive. There is no laboratory evidence of HCV infection. In most cases, no further action is required. However, if recent HCV exposure is suspected, a test for HCV RNA (test code 45786) is suggested. For additional information please refer to http://[employer]iv[employer]iasmart/faq/RNE69f0 (This link is being provided for informational/ educational purposes only.) RPR (MONITOR) W/REFL TITER Reviewed date:07/10/2023 06:25:51 PM Interpretation: Performing Lab:[facility]-[id number] Arnoldo Chavez, ShmadfJQ[address] May Vera MD Notes/Report: 0; 0; 0; 0 RPR (MONITOR) W/REFL TITER NON-REACTIVE NON-REACTIVE Reason For Referral No Information Medications Medication SIG (Take, Route, Fr equency, Duration) Notes Start Date End Date Status Sertraline HCl 50 MG 1 tablet Orally Onc e a day for 30 days 10/07/2023 Active valACYclovir HCl 1 GM 1 tablet Orally Tw ice a day for 30 days 08/25/2022 09/16/2024 Active traZODone HCl 50 MG 1-2 tablet at bedtim e as needed Orally Once a day for 30 days 02/14/2024 Active traZODone HCl 50 MG 0.5 - 1 tablet at be dtime as needed Orally Once a day for 30 days 02/14/2024 Active Immunizations Vaccine Route Administration Date Status Comme nts HPV VIRUS VACCINE 9 (Gardasil 9) Unknown 01/12/2022 Administered HPV VIRUS VACCINE 9 (Gardasil 9) IM Intramuscular 03/02/2022 Administered HPV VIRUS VACCINE 9 (Gardasil 9) IM Intramuscular 06/12/2022 Administered Jynneos ID Intradermal 01/25/2022 Administered Jynneos ID Intradermal 03/02/2022 Administered Social History Tobacco Use: Social History Observation Description Date Details (start date - stop date) Current Smoker NA - NA Sex Assigned At : Social History Observation Description Sex Assigned At Male Tobacco Use/Smoking Question Answer Notes Smoking Status: current smoker Are you interested in quitting? Not ready to abel t How many cigarettes a day do you smoke? 6-10 How soon after you wake up d o you smoke your first cigarette? after 60 minutes How often do you smoke cigarettes? some days, bu t not every day Alcohol Screen (Audit-C) Question Answer Notes Did you have a drink contain ing alcohol in the past year? Yes How often did you have 6 or more drinks on one occasion in the past year? Weekly (3 points) How many drinks did you have on a typical day when you were drinking in the past year? 5 or 6 drinks (2 points) How often did you have a dri nk containing alcohol in the past year? 2 to 3 times a week (3 points) Tobacco use other than smoking: Question Answer Notes Are you an other tobacco user? No Problems Problem Type SNOMED Code ICD Code Onset Dates Problem Status W/U Status Risk Notes Problem 7205650 Primary insomnia (F51.01) Active confirmed Problem Herpes simplex viral infection (78871794) HSV infection (B00.9) Active confirmed Problem 987065723 Obesity (BMI 30-39.9) (E66.9) Active confirmed Problem 489531097 MDD (major depressive disorder), recurrent episode, mild (F33.0) Active confirmed Vital Signs Heart Rate 73 /min 06/16/2024 Temperature 98.4 degrees Fahrenheit 06/16/2024 Respiratory Rate 14 /min 09/24/2023 Blood pressure diastolic 70 mm Hg 06/16/2024 Oximetry 97 % 06/16/2024 Height 69 in 06/16/2024 Blood pressure systolic 100 mm Hg 06/16/2024 Weight 228.4 lbs 06/16/2024 BMI 33.73 kg/m2 06/16/2024 Encounters Encounter Location Date Provider Diagnosis [address] [address] 07/09/2023 Dallas Corbett High risk sexual behavior, unspecified type Z72.51 ; Encounter for screening for infections with predominantly sexual mode of transmission Z11.3 ; Encounter for screening for HIV Z11.4 ; Encounter for screening for other viral diseases Z11.59 ; MDD (major depressive disorder), recurrent episode, mild F33.0 ; Decreased libido R68.82 and Obesity (BMI 30-39.9) E66.[address] [address] 09/24/2023 [facility] High risk sexual behavior, unspecified type Z72.51 ; Encounter for screening for infections with predominantly sexual mode of transmission Z11.3 ; Encounter for screening for HIV Z11.4 ; Encounter for screening for other viral diseases Z11.59 ; MDD (major depressive disorder), recurrent episode, mild F33.0 ; Decreased libido R68.82 ; Obesity (BMI 30-39.9) E66.9 and HSV infection B00.[address] [address] 02/14/2024 [facility] High risk sexual behavior, unspecified type Z72.51 ; Encounter for screening for infections with predominantly sexual mode of transmission Z11.3 ; Encounter for screening for HIV Z11.4 ; Encounter for screening for other viral diseases Z11.59 ; MDD (major depressive disorder), recurrent episode, mild F33.0 ; Decreased libido R68.82 ; Obesity (BMI 30-39.9) E66.9 ; HSV infection B00.9 and Primary insomnia F51.[address] [address] 06/16/2024 [facility] High risk sexual behavior, unspecified type Z72.51 ; Encounter for screening for infections with predominantly sexual mode of transmission Z11.3 ; Encounter for screening for HIV Z11.4 ; Encounter for screening for other viral diseases Z11.59 and MDD (major depressive disorder), recurrent episode, mild F33.[address] [address] 09/17/[address] [address] 09/25/2023 [facility] Obesity (BMI 30-39.9 ) E66.9 ; HSV infection B00.9 and MDD (major depressive disorder), recurrent episode, mild F33.0 [facility] [address] [place] [address] 10/05/2023 [facility], [facility] [address] [place] [address] 10/07/2023 [facility], [facility] [address] [place] [address] 11/12/2023 [facility] HSV infection B00.9 [facility] [address] [place] [address] 04/08/2024 [facility], [facility] [address] [place] [address] 07/11/2023 [facility], [facility] [address] [place] [address] 07/12/2023 [facility], [facility] [address] [place] [address] 08/27/2023 [facility], [facility] [address] [place] [address] 09/18/2023 [facility], [facility] [address] [place] [address] 09/19/2023 [facility], [facility] [address] [place] [address] 09/25/2023 [facility], [facility] [address] [place] [address] 10/05/2023 [facility], [facility] [address] [place] [address] 11/15/2023 [facility] HSV infection B00.9 [facility] [address] [place] [address] 11/15/2023 [facility], [facility] [address] [place] [address] 12/05/2023 [facility], [facility] [address] [place] [address] 12/05/2023 [facility] [address] [place] [address] 12/27/2023 [facility] [address] [place] [address] 01/14/[address] [address] 01/14/[address] [address] 03/19/2024 [facility] High risk sexual behavior, unspecified type Z72.51 ; MDD (major depressive disorder), recurrent episode, mild F33.0 and HSV infection B00.[address] [address] 04/11/[address] [address] 05/04/2024 [facility] High risk sexual behavior, unspecified type Z72.[address] [address] 05/29/2024 [facility] High risk sexual behavior, unspecified type Z72.51 and MDD (major depressive disorder), recurrent episode, mild F33.[address] [address] 05/31/[address] [address] 06/16/2024 [facility] Assessments Encounter Date Diagnosis (ICD Code) Assessment Notes Treatment Notes Treatment Clinical Notes Section Notes 07/09/2023 Encounter for screening for infections with predominantly sexual mode of transmission (ICD-10 - Z11.3) 07/09/2023 High risk sexual behavior, unspecified type (ICD-10 - Z72.51) 09/24/2023 Encounter for screening for infections with predominantly sexual mode of transmission (ICD-10 - Z11.3) 09/24/2023 High risk sexual behavior, unspecified type (ICD-10 - Z72.51) 09/25/2023 Obesity (BMI 30-39.9) (ICD-10 - E66.9) 11/12/2023 HSV infection (ICD-10 - B00.9) 11/15/2023 HSV infection (ICD-10 - B00.9) 02/14/2024 Encounter for screening for infections with predominantly sexual mode of transmission (ICD-10 - Z11.3) 02/14/2024 High risk sexual behavior, unspecified type (ICD-10 - Z72.51) 03/19/2024 High risk sexual behavior, unspecified type (ICD-10 - Z72.51) 05/04/2024 High risk sexual behavior, unspecified type (ICD-10 - Z72.51) 05/29/2024 High risk sexual behavior, unspecified type (ICD-10 - Z72.51) 06/16/2024 High risk sexual behavior, unspecified type (ICD-10 - Z72.51) gave him 3 months samples of Descovy due to nausea 06/16/2024 Encounter for screening for infections with predominantly sexual mode of transmission (ICD-10 - Z11.3) 05/29/2024 MDD (major depressive disorder), recurrent episode, mild (ICD-10 - F33.0) 03/19/2024 MDD (major depressive disorder), recurrent episode, mild (ICD-10 - F33.0) 02/14/2024 Encounter for screening for HIV (ICD-10 - Z11.4) 09/24/2023 Encounter for screening for HIV (ICD-10 - Z11.4) 09/25/2023 HSV infection (ICD-10 - B00.9) 07/09/2023 Encounter for screening for HIV (ICD-10 - Z11.4) 07/09/2023 Encounter for screening for other viral diseases (ICD-10 - Z11.59) 09/24/2023 Encounter for screening for other viral diseases (ICD-10 - Z11.59) 09/25/2023 MDD (major depressive disorder), recurrent episode, mild (ICD-10 - F33.0) 02/14/2024 Encounter for screening for other viral diseases (ICD-10 - Z11.59) 03/19/2024 HSV infection (ICD-10 - B00.9) 06/16/2024 Encounter for screening for HIV (ICD-10 - Z11.4) 06/16/2024 Encounter for screening for other viral diseases (ICD-10 - Z11.59) 02/14/2024 MDD (major depressive disorder), recurrent episode, mild (ICD-10 - F33.0) Cross taper of Lexapro and Wellbutrin to help mitigate the sexual side effects 09/24/2023 MDD (major depressive disorder), recurrent episode, mild (ICD-10 - F33.0) Cross taper of Lexapro and Wellbutrin to help mitigate the sexual side effects 07/09/2023 MDD (major depressive disorder), recurrent episode, mild (ICD-10 - F33.0) Cross taper of Lexapro and Wellbutrin to help mitigate the sexual side effects 09/24/2023 Decreased libido (ICD-10 - R68.82) 07/09/2023 Decreased libido (ICD-10 - R68.82) 02/14/2024 Decreased libido (ICD-10 - R68.82) 06/16/2024 MDD (major depressive disorder), recurrent episode, mild (ICD-10 - F33.0) 02/14/2024 Obesity (BMI 30-39.9) (ICD-10 - E66.9) 09/24/2023 Obesity (BMI 30-39.9) (ICD-10 - E66.9) 07/09/2023 Obesity (BMI 30-39.9) (ICD-10 - E66.9) 09/24/2023 HSV infection (ICD-10 - B00.9) 02/14/2024 HSV infection (ICD-10 - B00.9) 02/14/2024 Primary insomnia (ICD-10 - F51.01) 07/02/2023 Other Time was spent giving the patient safer sex counseling. Condoms were offered to patient. 07/09/2023 Other 09/24/2023 Other 02/14/2024 Other 06/16/2024 Other Time was spent giving the patient safer sex counseling. Condoms were offered to patient. Plan Of Treatment Pending Test Test Name Order Date HIV 1 RNA, QUANTITATIVE REAL TIME PCR 04 /02/2023 Ct/GC TATYANA, Pharyngeal 06/16/2024 Next Appt Details Provider Name:Dallas Griffin rop, 09/16/2024 02:30:00 PM, [address] [place], [address], Insurance Providers Payer Name Payer Address Payer Phone Subscriber Number Group Number Insured Name Patient Relationship to Insured Coverage Start Date Coverage End Date [facility] [address] [place] [address] [id number] Nabil Bueno Self - patient is the insured Medications Administered Medication Instructions Date of Administration Dosage Notes Apretude 03/10/2022 3 mL Left Buttock, Lot:[id number] EXP:Mar 2024 [employer]ude 04/13/2022 3 mL Lot#:[id number] Exp:03/2024 [employer]ude 06/12/2022 3 mL LOT: [id number] EXP: JUN 2024 [employer] 08/14/2022 3 mL Apretude 10/16/2022 3 mL Lot [id number] 2024 [employer] 12/18/2022 3 mL Lot [id number] September2024 [employer] 02/19/2023 3 mL Lot [id number] September2024 [employer] 05/01/2023 3 mL Apretude 07/02/2023 3 mL Lot [id number] September2024 [employer] 07/09/2023 3 mL Apretude 09/24/2023 3 mL Ceftriaxone 500mg 10/18/2022 500 mg Medical (General) History Medical History History ICD Code Colonoscopy: No have onescheduled DEXA (Bone Density) Scan: No Mammogram: N Pap: No AIDS/HIV: No alcohol abuse: No acid reflux: No allergies, food: Yes allergies, seasonal: Yes anemia: No arthritis: No asthma: No attention deficit disorder: No anxiety: Yes bipolar disorder: No bladder infections, chronic: No : No chronic diarrhea: Yes cough, chronic: No dementia: No depression: Yes deep vein thrombosis: No diabetes mellitus: No drug abuse: No eating disorder: No gout: Yes insomnia: No inflammatory bowel disease: No myocardial infarction: No neuropathy: No panic attacks: No osteoporosis: No pulmonary embolism: No rheumatoid arthritis: No seizures: No sleep apnea: Yes stroke: No white coat hypertension: No Other not mentioned: No Hospitalization History Reason Date(Month/Year) eye injury alpha gal
--- OUTSIDE RECORDS SUMMARY | 2024-06-19 08:19 | XMS_ITS | Referral Summary ---
Author Organization [facility] Address [address] [place] [address] Care Team Providers Care Systems Mgr Name Role Phone Dallas Corbett DO Primary Care Provider Kevin Donnelly MD Unavailable [phone] Encounters Date Type Department Care Team Description 06/16/2024 8:30 AM PULP GRINDER AND BLENDER Office Visit [facility] Orthopaedic Surgery [address] [place] [address] 2nd [address] [place] [address] Kevin Donnelly MD Bilateral hand numbness (Primary Dx) 06/04/2024 9:45 AM PULP GRINDER AND BLENDER - 06/04/2024 10:15 AM PULP GRINDER AND BLENDER Surgery [facility] [address] [place] [address] Kevin Donnelly MD RELEASE CARPAL TUNNEL - BILATERAL 06/04/2024 9:49 AM PULP GRINDER AND BLENDER Anesthesia Event [facility] [address] [place] [address] Isabell Diaz MD Gangloff, Kerry Marie, NP 06/04/2024 8:23 AM PULP GRINDER AND BLENDER - 06/04/2024 11:15 AM PULP GRINDER AND BLENDER Hospital Encounter [facility] [address] [place] [address] Kevin Donnelly MD Bilateral carpal tunnel syndrome (Primary Dx) Discharge Disposition: Discharge to home or self care 05/15/2024 3:20 PM PULP GRINDER AND BLENDER Office Visit [facility] [address] [facility] 6th [place] [address] [place] [address] Kevin Donnelly MD Bilateral hand numbness (Primary Dx) from Last 3 Months Allergies Active Allergy Reactions Criticality Noted Date Comments Acycvqxqy-Oqqxc-6,3-Galact ose (Alpha-Gal) Hives Medium 05/19/2024 05/26/24: Patient [...] on file Legal Sex Male 2:48 PM PULP GRINDER AND BLENDER Gender Identity Not on file Sexual Orientation Not on file Last Filed Vital Signs Vital Sign Reading Time Taken Comments Blood Pressure 126/68 06/04/2024 10:45 AM PULP GRINDER AND BLENDER Pulse 54 06/04/2024 10:45 AM PULP GRINDER AND BLENDER Temperature 36 C (96.8 F) 06/04/2024 10:24 AM PULP GRINDER AND BLENDER Respiratory Rate 11 06/04/2024 10:4 5 AM PULP GRINDER AND BLENDER Oxygen Saturation 94% 06/04/2024 10: 45 AM PULP GRINDER AND BLENDER Inhaled Oxygen Concentration - - Weight 101.4 kg (223 lb 9.6 oz) 06/04/2024 8:53 AM PULP GRINDER AND BLENDER Height 175.3 cm (5' 9 ) 06/04/2024 8:53 AM PULP GRINDER AND BLENDER Body Mass Index 33.02 06/04/2024 8:53 AM PULP GRINDER AND BLENDER Plan of Treatment Not on file Procedures Procedure Name Priority Date/Time Associated Diagnosis Comments RELEASE CARPAL TUNNEL - BILATERAL 06/04/2024 9:52 AM PULP GRINDER AND BLENDER Bilateral carpal tunnel syndrome from Last 3 Months Insurance [facility] HMO/PPO Address[facility] [address] [place] [address] [facility] CHOICE PLUS [facility] HMO/PPO Address: [place] [address] Care Teams Systems Mgr Relationship Specialty Start Date End Date Dallas Corbett DO [address] [place] [address] PCP - General Internal Medicine 09/11/22 [place] [address] [place] [address] Surgeon Orthopedic Surgery 06/04/24
--- OUTSIDE RECORDS SUMMARY | 2024-06-19 08:19 | XMS_ITS | Encounter Summary ---
Author Organization [facility] Address [address] [place] [address] Phone Care Team Providers Care Control Director Name Role Phone Dallas Corbett DO Primary Care Provider Kevin Donnelly MD Unavailable [phone] Encounter Details Date Type Department Care Team (Late st Contact Info) Description 12/19/2022 Orders Only [facility] [phone] Scanning, Provider Social History Tobacco Use Types Packs/Day Years Used Date Smoking Tobacco: Never Smokeless Tobacco: Never Sex and Gender Information Value Date Recorded Sex Assigned at Not on file 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
--- OUTSIDE RECORDS SUMMARY | 2024-06-19 08:19 | XMS_ITS | Clinical Summary ---
Author Organization [facility] Address [address] [place] [address] Care Team Providers Care Supervisor Ornamental Ironworking Name Role Phone Dallas Corbett Primary Care Provider Kevin Donnelly MD Unavailable [phone] Allergies Active Allergy Reactions Criticality Noted Date Comments Ryqhbcavp-Oouof-1,3-Galact ose (Alpha-Gal) Hives Medium 05/19/2024 05/26/24: Patient [...] Department Care Team Description 06/16/2024 8:30 AM EDUCATIONAL ADVISER Office Visit [facility] Orthopaedic Surgery [address] [place] [address] [address] [place] [phone] Kevin Donnelly MD Bilateral hand numbness (Primary Dx) 06/04/2024 9:49 AM EDUCATIONAL ADVISER Anesthesia Event [facility] [address] [place] [address] Isabell Diaz MD Gangloff, Kerry Marie, NP 06/04/2024 9:45 AM EDUCATIONAL ADVISER - 06/04/2024 10:15 AM EDUCATIONAL ADVISER Surgery [facility] [address] [place] [address] Kevin Donnelly MD RELEASE CARPAL TUNNEL - BILATERAL 06/04/2024 8:23 AM EDUCATIONAL ADVISER - 06/04/2024 11:15 AM EDUCATIONAL ADVISER Hospital Encounter [facility] [address] [place] [address] Kevin Donnelly MD Bilateral carpal tunnel syndrome (Primary Dx) Discharge Disposition: Discharge to home or self care 05/15/2024 3:20 PM EDUCATIONAL ADVISER Office Visit [facility] Orthopaedic Surgery [address] [facility] 6th [place] [address] [place] [address] Kevin Donnelly MD Bilateral hand numbness (Primary [...] on file Legal Sex Male 2:48 PM EDUCATIONAL ADVISER Gender Identity Not on file Sexual Orientation Not on file Obstetrics History Last Filed Vital Signs Vital Sign Reading Time Taken Comments Blood Pressure 126/68 06/04/2024 10:45 AM EDUCATIONAL ADVISER Pulse 54 06/04/2024 10:45 AM EDUCATIONAL ADVISER Temperature 36 C (96.8 F) 06/04/2024 10:24 AM EDUCATIONAL ADVISER Respiratory Rate 11 06/04/2024 10:4 5 AM EDUCATIONAL ADVISER Oxygen Saturation 94% 06/04/2024 10: 45 AM EDUCATIONAL ADVISER Inhaled Oxygen Concentration - - Weight 101.4 kg (223 lb 9.6 oz) 06/04/2024 8:53 AM EDUCATIONAL ADVISER Height 175.3 cm (5' 9 ) 06/04/2024 8:53 AM EDUCATIONAL ADVISER Body Mass Index 33.02 06/04/2024 8:53 AM EDUCATIONAL ADVISER Plan of Treatment Health Maintenance Due Date [...] CARPAL TUNNEL - BILATERAL 06/04/2024 9:52 AM EDUCATIONAL ADVISER Bilateral carpal tunnel syndrome from Last 3 Months Insurance [facility] CHOICE PLUS [facility] CHOICE PLUS Care Teams Supervisor Ornamental Ironworking Relationship Specialty Start Date End Date Dallas Corbett DO [address] [place] [address] PCP - General Internal Medicine 09/11/22 [place] [address] [place] [address] Surgeon Orthopedic Surgery 06/04/24
== END 2024-06-19 08:17 | disposition home or self-care (01) ==
PROVIDERS: Emergency Provider Emergency Medicine
DX: S61.511A Laceration without foreign body of right wrist, initial encounter (principal); Z98.890 Other specified postprocedural states; W00.0XXA Fall on same level due to ice and snow, initial encounter
CPT/HCPCS: 99282

== ENCOUNTER 2025-03-12 22:20 | Emergency (ER) | payer OTHER, SELFPAY ==
--- OUTSIDE RECORDS SUMMARY | 2023-11-26 10:10 | XMS_ITS ---
[facility] Address [address] [place] [address] Care Team Providers Care Caul Dresser Name Role Phone Dr. Dallas Corbett Primary Care Provider PrelutskFam deleon [phone] REASON FOR VISIT 2 month f/u - apretude Social History Sex Assigned At : Social History Observation Description Sex Assigned At Male Encounters Encounter Location Date Provider Diagnosis [facility] [address] [place] [address] 11/26/2023 Dallas Corbett Plan Of Treatment Next Appt Details Provider Name:Dallas tate, 03/26/2025 11:40:00 AM, [address] [place], [address], Progress Notes * Nabil MENDOZADOB:1990 (34 yo M)Acc No.[id number]:11/26/2023 Progress Notes Patient: Estelle PASCUALchary Provider: Carol Corbett DO :1990 A ge:33 Y S ex:Male Date:11/26/2023 Address:[address], [facility] Subjective: * Chief Complaints: * 1 . 2 month f/u - apretude. * Medical History: * Implants: Objective: * Vitals: Assessment: Plan: * Treatment: * Billing Information: * Visit Code: * Procedure Codes: Care Plan Details* * Electronic signature of Dr. Dallas Corbett , DO on 03/12/2025 at 10:23 PM DIRECTOR OF MATERIALS MANAGEMENT Sign off status: Pending * Provider: Carol Corbett DO Date: 0 11/26/2023 Generated for Teto nicholson/Jeimy/Yi on: 1 05/12/2024 10:23 PM DIRECTOR OF MATERIALS MANAGEMENT
--- OUTSIDE RECORDS SUMMARY | 2024-05-16 05:00 | XMS_ITS ---
[facility] Address [address] [place] [address] Care Team Providers Care Handbell Choir Director Name Role Phone Dr. Dallas Corbett Primary Care Provider [phone] PrelutskFam deleon [phone] REASON FOR VISIT 3 month f/u Social History Sex Assigned At : Social History Observation Description Sex Assigned At Male Encounters Encounter Location Date Provider Diagnosis [facility] [address] [place] [address] 05/16/2024 Dallas Corbett Plan Of Treatment Next Appt Details Provider Name:Dallas tate, 03/26/2025 11:40:00 AM, [address] [place], [address], Progress Notes * Nabil MENDOZADOB:1990 (34 yo M)Acc No.[id number]:05/16/2024 Progress Notes Patient: Daryl MARTINEZFausto Nabil Provider: Carol Corbett DO :1990 A ge:33 Y S ex:Male Date:05/16/2024 [address] [facility] Subjective: * Chief Complaints: * 1 . 3 month f/u. * Medical History: * Implants: Objective: * Vitals: Assessment: Plan: * Treatment: * Billing Information: * Visit Code: * Procedure Codes: Care Plan Details* * Electronic signature of Dr. Dallas Corbett , DO on 03/12/2025 at 10:23 PM GAME PROGRAMER Sign off status: Pending * Provider: Carol Corbett DO Date: 0 05/16/2024 Generated for Teto nicholson/Jeimy/Yi on: 1 05/12/2024 10:23 PM GAME PROGRAMER
--- OUTSIDE RECORDS SUMMARY | 2024-06-20 04:30 | XMS_ITS ---
[facility] Address [address] [place] [address] Care Team Providers Care Generation Mechanic Helper Name Role Phone Dr. Dallas Corbett Primary Care Provider PrelutskFam deleon [phone] REASON FOR VISIT treatment Medications Medication SIG (Take, Route, Fr equency, Duration) Notes Start Date End Date Status traZODone HCl 50 MG 0.5 - 1 tablet at be dtime as needed Orally Once a day; Duration: 30 days 02/14/2024 Active traZODone HCl 50 MG 1-2 tablet at bedtim e as needed Orally Once a day; Duration: 30 days 02/14/2024 Active valACYclovir HCl 1 GM 1 tablet Orally Tw ice a day; Duration: 30 days 08/25/2022 09/16/2024 Active Sertraline HCl 50 MG 1 tablet Orally Onc e a day; Duration: 30 days 10/07/2023 Active Social History Sex Assigned At : Social History Observation Description Sex Assigned At Male Encounters Encounter Location Date Provider Diagnosis [address] [address] 06/20/2024 Dallas Corbett Gonorrhea A54.9 Assessments Encounter Date Diagnosis (ICD Code) Assessment Notes Treatment Notes Treatment Clinical Notes Section Notes 06/20/2024 Gonorrhea (ICD-10 - A54.9) Plan Of Treatment Next Appt Details Provider Name:Dallas tate, 03/26/2025 11:40:00 AM, [address] [place], [address], Medications Administered Medication Instructions Date of Administration Dosage Notes cefTRIAXone Sodium 06/20/2024 500 mg Progress Notes * Nabil MENDOZADOB:1990 (34 yo M)Acc No.[id number]:06/20/2024 Vaccination or Therapeutic I njection Patient: Nabil PASCUAL Provider: Carol Corbett DO :1990 A ge:33 Y S ex:Male Date:06/20/2024 Address:[address] [place] [address] [place] , [id number] Subjective: * Chief Complaints: * 1 . Treatment. * Medical History: * Medications: T aking traZODone HCl 50 MG Tablet 0.5 - 1 tablet at bedtime as needed Orally Once a day , Taking traZODone HCl 50 MG Tablet 1-2 tablet at bedtime as needed Orally Once a day , Taking valACYclovir HCl 1 GM Tablet 1 tablet Orally Twice a day , stop date 09/16/2024, Taking Sertraline HCl 50 MG Tablet 1 tablet Orally Once a day Objective: Assessment: * Assessment: 1. G onorrhea - A54.9 Plan: * Treatment: * Therapeutic Injections: Ceftriaxone 500mg : 500 mg (Dose No:1) (Route: Intramuscular) given by Edwin Riojas on right buttock (Gonorrhea) * Procedure Codes: J 0696 Ceftriaxone 500mg, Units: 2.00 , 84709 THER/PROPH/DIAG INJ- SC/IM * Billing Information: * Visit Code: * Procedure Codes: J0696 Ceftriaxone 500mg. Units: 2.00. 98696 THER/PROPH/DIAG INJ- SC/IM. Care Plan Details* * Electronic signature of Dr. Dallas Corbett DO on 03/12/2025 at 10:22 PM SURGICAL APPLIANCE FITTER Sign off status: Pending * Provider: Carol Corbett DO Date: 0 06/20/2024 Generated for Johniei lyn/Jeimy/eTransmitting on: 1 05/12/2024 10:22 PM SURGICAL APPLIANCE FITTER
--- OUTSIDE RECORDS SUMMARY | 2024-11-13 05:40 | XMS_ITS ---
Author Organization [facility] Address [address] [place] [address] Care Team Providers Care Hair Baler Name Role Phone Lissy Parsons Primary Care Provider [phone] REASON FOR VISIT 4 week F/U Medications Medication SIG (Take, Route, Frequency, Duration) Notes Start Date End Date Status ARIPiprazole 10 MG 1 tablet Orally Once a day; Duration: 30 day(s) 10/15/2024 Active Propranolol HCl Acti ve Sertraline HCl Activ e Doxylamine Succinate (Sleep) Active Social History Sex Assigned At : Social History Observation Description Sex Assigned At Male Encounters Encounter Location Date Provider Diagnosis [address] [place] [address] 11/13/2024 Lissy Parsons Plan Of Treatment No Information Progress Notes * LOVELYEstellerosaDOB:1990 (34 yo M)Acc No.[id number]:11/13/2024 UNLOCKED PROGRESS NOTE Patient: Nabil PASCUAL Provider: GROVER Mackey :1990 A ge:34 Y S ex:Male Date:11/13/2024 Address:[address], [facility] Subjective: * Chief Complaints: * 1 . 4 week F/U. * HPI: N ew/Follow-up Patient Consult: Consent to treat S taff reviewed [facility] Consent to Treat document with the patient. The patient verbally acknowledged understanding of the document and verbally voluntarily consents to treatment at [facility]. Patient verbally authorizes [facility] to bill for these services. 0 10/15/2024 ., S brandon reviewed [facility] Consent to treat document with the patient's Parent or Guardian. The patient's parent or guardian verbally acknowledged understanding of the document and verbally voluntarily consents to treatment at [facility]. Parent or Guardian also verbally authorizes [facility] to bill for these services. 0 10/15/2024. D epression Screening: PHQ-9 L ittle interest or pleasure in doing things S everal days, F eeling down, depressed, or hopeless S everal days, T rouble falling or staying asleep, or sleeping too much S everal days, F eeling tired or having little energy S everal days, P oor appetite or overeating S everal days, F eeling bad about yourself or that you are a failure, or have let yourself or your family down S everal days, T rouble concentrating on things, such as reading the newspaper or watching television N early every day,?Moving or speaking so slowly that other people could have noticed; or the opposite, being so fidgety or restless that you have been moving around a lot more than usual N ot at all, T houghts that you would be better off or of hurting yourself in some way S everal (Consider Suicide Assessment Risk), T otal Score 1 0, I nterpretation M oderate Depression.? S creening: Harmon Suicide Severity Rating Scale (LF) D o you want to initiate with S creener form, I nterpretation: H igh Risk, 6 . Suicide Behavior Question: Have you ever done anything,started to do anything, or prepared to end your life? N o, 2. Suicidal Thoughts: Have you actually had any thoughts of killing yourself? Y es, 5 . Suicide Intent with Specific Plan: Have you started to work out or worked out the details of how to kill yourself? Do you intend to carry out this plan? Y es, 4 . Suicidal Intent (without Specific Plan): Have you had these thoughts and had some intention of acting on them? N o, 3 . Suicidal Thoughts with Method (without Specific Plan or Intent to Act): Have you been thinking about how you might do this? Y es, 1 . Wish to be : Have you wished you were or wished you could go to sleep and not wake up? Y es. * Medical History: * Medications: T aking Doxylamine Succinate (Sleep) , Taking Sertraline HCl , Taking Propranolol HCl , Taking ARIPiprazole 10 MG Tablet 1 tablet Orally Once a day Objective: * Vitals: Assessment: Plan: * Treatment: * * Electronic signature of Muna Parsons on 03/12/2025 at 10:23 PM HOGSHEAD COOPER Sign off status: Pending * Provider: GROVER Mackey Date: 0 11/13/2024 Generated for Teto nicholson/Jeimy/Yi on: 1 05/12/2024 10:23 PM HOGSHEAD COOPER History and Physical Notes * HPI (History of Present Illness) Category Sub-Category Detail Notes Category Not es New/Follow-up Patient Consult Consent to treat Staff reviewed [facility] Consent to Treat document with the patient. The patient verbally acknowledged understanding of the document and verbally voluntarily consents to treatment at [facility]. Patient verbally authorizes [facility] to bill for these services.: 10/15/2024 . Staff reviewed [facility] Consent to treat document with the patient's Parent or Guardian. The patient's parent or guardian verbally acknowledged understanding of the document and verbally voluntarily consents to treatment at [facility]. Parent or Guardian also verbally authorizes [facility] to bill for these services.: 10/15/2024 Depression Screening PHQ-9 Little inte rest or pleasure in doing things: Several days Feeling down, depressed, or hopeless: Se veral days Trouble falling or staying asleep, or sl eeping too much: Several days Feeling tired or having little energy: S everal days Poor appetite or overeating: Several day s Feeling bad about yourself o r that you are a failure, or have let yourself or your family down: Several days Trouble concentrating on thi ngs, such as reading the newspaper or watching television: Nearly every day Moving or speaking so slowly that other people could have noticed; or the opposite, being so fidgety or restless that you have been moving around a lot more than usual: Not at all Thoughts that you would be b eunice off or of hurting yourself in some way: Several days (Consider Suicide Assessment Risk) Total Score: 10 Interpretation: Moderate Depression Screening Harmon Suicide Sev erity Rating Scale (LF) Do you want to initiate with: Screener form Interpretation:: High Risk 6. Suicide Behavior Question: Have you ever done anything,started to do anything, or prepared to end your life?: No 2. Suicidal Thoughts: Have you actually had any thoughts of killing yourself?: Yes 5. Suicide Intent with Specific Plan: Have you started to work out or worked out the details of how to kill yourself? Do you intend to carry out this plan?: Yes 4. Suicidal Intent (without Specific Plan): Have you had these thoughts and had some intention of acting on them?: No 3. Suicidal Thoughts with Method (without Specific Plan or Intent to Act): Have you been thinking about how you might do this?: Yes 1. Wish to be : Have you wished you were or wished you could go to sleep and not wake up?: Yes
--- NOTE | ~2025-03-12 | XR_ITS ---
XR chest 1V portable INDICATION:MID CP X 2 WEEKS . REFERENCE: None FINDINGS: A single AP of the chest demonstrates normal heart size. The lungs are clear. There is no evidence of pneumothorax or pleural effusion. IMPRESSION: No acute pulmonary findings. Reviewed, dictated and finalized at location S. GENCY ROOM DOCTOR
--- NOTE | 2025-03-12 22:21 | ECG_ITS ---
Test Date: 2025-03-12 22:25:06 Measurements Intervals [place] Rate: 88 P: 25 AK: 163 QRS: 37 QRSD: 99 T: 48 QT: 336 QTc: 408 Interpretive Statements SINUS RHYTHM No previous ECG available for comparison Electronically Signed On 03-12-2025 22:37:00 ADVERTISING REPRESENTATIVE by Randal Santoyo D.O
--- OUTSIDE RECORDS SUMMARY | 2025-03-12 22:23 | XMS_ITS | Encounter Summary ---
Author Organization [facility] Address [address] [place] [address] Phone Care Team Providers Care Residential Sales Manager Name Role Phone Dallas Corbett DO Primary Care Provider Kevin Donnelly MD Unavailable [phone] Encounter Details Date Type Department Care Team (Late st Contact Info) Description 12/19/2022 Orders Only [facility] [phone] Scanning, Provider Social History Tobacco Use Types Packs/Day Years Used Date Smoking Tobacco: Never Smokeless Tobacco: Never Sex and Gender Information Value Date Recorded Sex Assigned at Not on file 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
--- OUTSIDE RECORDS SUMMARY | 2025-03-12 22:23 | XMS_ITS | Clinical Summary ---
Author Organization [facility] Address [address] [place] [address] Care Team Providers Care Community Development Specialist Name Role Phone Dallas Corbett Primary Care Provider Kevin Donnelly MD Unavailable [phone] Allergies Active Allergy Reactions Criticality Noted Date Comments 1 Alpha-Gal Unknown Dairy Tolerance (Snqybjlzz-Sfywu-1,3-Galact ose) Hives Medium 05/19/2024 05/26/24: Patient is able to tolerate dairy products Medications emtricitabine-t enofovir disoproxil fumerate (TRUVADA) 200-300 mg per tablet Take 1 tablet by mouth nightly 05/04/2024 Active acetaminophen (TYLENOL) 325 mg tablet Take 2 tablets (650 mg total) by mouth every 6 (six) hours as needed for pain Active sertraline (ZOLOFT) 50 mg tablet Take 1 tablet (50 mg total) by mouth daily 05/29/2024 Active Active Problems Problem Noted Date Diagnosed Date Bilateral carpal tunnel syndrome 05/19/2024 Surgical History Surgery Date Site/Laterality Comments WISDOM [...] on file Legal Sex Male 2:48 PM DENSITOMETRIST Gender Identity Not on file Sexual Orientation Not on file Last Filed Vital Signs Vital Sign Reading Time Taken Comments Blood Pressure 126/68 06/04/2024 10:45 AM DENSITOMETRIST Pulse 54 06/04/2024 10:45 AM DENSITOMETRIST Temperature 36 C (96.8 F) 06/04/2024 10:24 AM DENSITOMETRIST Respiratory Rate 11 06/04/2024 10:45 AM DENSITOMETRIST Oxygen Saturation 94% 06/04/2024 10:45 AM DENSITOMETRIST Inhaled Oxygen Concentration - - Weight 101.2 kg (223 lb) 10/16/2024 1:45 PM CDT Height 175.3 cm (5' 9) 10/16/2024 1:45 PM CDT Body Mass Index 32.93 10/16/2024 1:45 PM CDT Plan of Treatment Health Maintenance Due Date Last Done Comments Depression Screening 1990 Hepatitis C Screening 1990 DTaP/Tdap/Td Vaccine (1 - Tdap) 2001 Varicella Vaccines (1 of 2 - 13+ 2-dose series) 07/15/2003 Hepatitis B Screening 2008 Regular Well Visit/Exam 18-64 2008 Influenza Vaccine (#1) 2025 HPV Vaccines Completed 06/12/2022, 03/02/2022, 01/12/2022 Pneumococcal vaccine <65 Aged Out No longer eligible based on patient's age to complete this topic Insurance [facility] PL[facility] H[facility]/PPO Address: [place] [address] * Guarantor: Nabil Harrison Account Type Relation to Patient Date of Phone Billing Address Personal/Family Self [address] [place] [phone] [facility] H[facility]/PPO Address: [place] [id number] Care Teams Community Development Specialist Relationship Specialty Start Date End Date Dallas Corbett DO [address] [place] [address] PCP - General Internal Medicine 09/11/22 [place] [address] [place] [address] Surgeon Orthopedic Surgery 06/04/24
--- OUTSIDE RECORDS SUMMARY | 2025-03-12 22:23 | XMS_ITS | Clinical Summary ---
Author Organization [facility] Address [address] [place] [address] Care Team Providers Care Travertine Installer Name Role Phone Faiza Tala GUZMAN Primary Care Provider [phone] Allergies No known active allergies Medications emtricitabine-te nofovir 200-300 MG tablet Take 1 tablet by mouth daily. 06/09/2021 Active Active Problems Problem Noted Date Diagnosed Date Blood in stool 11/08/2017 Change in bowel habit 11/08/2017 Hypocalcemia 11/08/2017 Diarrhea 11/05/2017 Anxiety 07/02/2017 Carpal tunnel syndrome 06/21/2016 Resolved Problems Problem Noted Date Diagnosed Date Resolved Date Encounter for preventive health examination 06/21/2016 01/16/2022 Immunizations Immunization Administration Dates Next Due HPV GARDASIL 9-VALENT [...] 8:38 AM CDT Height 180.3 cm (5' 11) 01/12/2022 8:38 AM CDT Body Mass Index 34.31 01/12/2022 8:38 AM CDT Plan of Treatment Health Maintenance Due Date Last Done Comments Annual Physical 1993 DTaP, Tdap and Td Vaccines (1 - Tdap) 2009 Hepatitis B Vaccines (1 of 3 - 19+ 3-dose series) 2009 Pneumococcal Vaccine: Pediatrics (0 to 5 Years) and At-Risk Patients (6 to 49 Years) (1 of 2 - PCV) 2009 HPV Vaccines (2 - 3-dose SCDM series) 02/09/2022 01/12/2022 COVID-19 Vaccine ( - season) 2025 Influenza Adult (#1) 2025 Hepatitis C Completed 09/03/2017, 08/07, 06/21/2016, Additional history exists Hepatitis A Vaccines Aged Out No long er eligible based on patient's age to complete this topic Meningococcal B Vaccine Aged Out No l [...] VE NON-REACTI VE 09/03/2017 9:27 PM CDT [facility] 09/03/2017 2:13 PM CDT Tala Kendall NP LABORATORY Final Result [facility] [address] [place] [address], from Last 3 Months or Most Recently Relevant to Health Maintenance Insurance [facility] Care Teams Travertine Installer Relationship Specialty Start Date End Date T[place] [address] PCP - General 11/20/16
--- OUTSIDE RECORDS SUMMARY | 2025-03-12 22:24 | XMS_ITS | Patient Health Record ---
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 Name Role Phone Lissy Parsons Primary Care Provider Allergies Allergen (clinical drug ingredient) Drug/Non Drug Allergy documented on EMR Reaction Allergy Type Onset Date Status alphapal (uncoded) Unknown Allergy A ctive Reason For Referral No Information Medications Medication SIG (Take, Route, Frequency, Duration) Notes Start Date End Date Status Adderall XR 25 MG 1 capsule in the mor krishna Orally Once a day; Duration: 30 days 02/11/2025 Active Propranolol HCl 40 MG 1 tablet Twice a day; Duration: 30 days As needed Active Doxylamine Succinate (Sleep) Active Sertraline HCl 200 MG 1 capsule daily; Duration: 30 days Active Zinc Carbonate 150 MG TAKE 1 CAPSULE BY MOUTH AT BEDTIME; Duration: 30 Active Social History Tobacco Use: Social History Observation Description Date Details (start date - stop date) Current Smoker NA - NA Sex Assigned At : Social History Observation Description Sex Assigned At Male Tobacco Control (Standard) Question Answer Notes Tobacco use: Current smoker Additional Findings: Tobacco user e-cigarette Problems Problem Type SNOMED Code ICD Code Onset Dates Problem Status W/U Status Risk Notes Problem Insomnia (377001444) Insomnia (G47.00) Active confirmed Problem Major depression (374612697) Major depression (F32.9) Active confirmed Problem Attention deficit hyperactivity disorder (447513905) ADHD (attention deficit hyperactivity disorder) (F90.9) Active confirmed Problem Generalized anxiety disorder (89688052) MIGUEL (generalized anxiety disorder) (F41.1) Active confirmed Vital Signs Height 5ft 11in in 10/15/2024 Weight 220 lbs 10/15/2024 BMI 30.68 kg/m2 10/15/2024 Encounters Encounter Location Date Provider Diagnosis [address] [address] 10/15/2024 Lissy Parsons Major depression F32 .9 ; MIGUEL (generalized anxiety disorder) F41.1 ; Insomnia G47.00 and Anger R45.[address] [address] 11/20/2024 Lissy Parsons Major depression F32 .9 ; ADHD (attention deficit hyperactivity disorder) F90.9 ; MIGUEL (generalized anxiety disorder) F41.1 ; Insomnia G47.00 and Anger R45.[address] [address] 12/24/2024 Lissy Parsons Major depression F32 .9 ; ADHD (attention deficit hyperactivity disorder) F90.9 ; MIGUEL (generalized anxiety disorder) F41.1 ; Insomnia G47.00 and Anger R45.[address] [address] 01/20/2025 Lissy Parsons Major depression F32 .9 ; ADHD (attention deficit hyperactivity disorder) F90.9 ; MIGUEL (generalized anxiety disorder) F41.1 ; Insomnia G47.00 and Anger R45.[address] [address] 02/11/2025 Lissy Parsons Major depression F32 .9 ; ADHD (attention deficit hyperactivity disorder) F90.9 ; MIGUEL (generalized anxiety disorder) F41.1 ; Insomnia G47.00 and Anger R45.[address] [address] 10/15/2024 Lissy Parsons [address] [address] 11/13/2024 Lissy Parsons [address] [address] 12/29/2024 Lissy Parsons [address] [address] 01/29/2025 Lissy Issa Assessments Encounter Date Diagnosis (ICD Code) Assessment Notes Treatment Notes Treatment Clinical Notes Section Notes 02/11/2025 Major depression (ICD-10 - F32.9) 01/20/2025 Major depression (ICD-10 - F32.9) 01/20/2025 ADHD (attention deficit hyperactivity disorder) (ICD-10 - F90.9) 12/24/2024 Major depression (ICD-10 - F32.9) 11/20/2024 Major depression (ICD-10 - F32.9) 11/20/2024 ADHD (attention deficit hyperactivity disorder) (ICD-10 - F90.9) 10/15/2024 Major depression (ICD-10 - F32.9) 10/15/2024 MIGUEL (generalized anxiety disorder) (ICD-10 - F41.1) 11/20/2024 MIGUEL (generalized anxiety disorder) (ICD-10 - F41.1) 10/15/2024 Insomnia (ICD-10 - G47.00) 12/24/2024 ADHD (attention deficit hyperactivity disorder) (ICD-10 - F90.9) 01/20/2025 MIGUEL (generalized anxiety disorder) (ICD-10 - F41.1) 02/11/2025 ADHD (attention deficit hyperactivity disorder) (ICD-10 - F90.9) 02/11/2025 MIGUEL (generalized anxiety disorder) (ICD-10 - F41.1) 01/20/2025 Insomnia (ICD-10 - G47.00) 12/24/2024 MIGUEL (generalized anxiety disorder) (ICD-10 - F41.1) 11/20/2024 Insomnia (ICD-10 - G47.00) 10/15/2024 Anger (ICD-10 - R45.4) 02/11/2025 Insomnia (ICD-10 - G47.00) 11/20/2024 Anger (ICD-10 - R45.4) 12/24/2024 Insomnia (ICD-10 - G47.00) 01/20/2025 Anger (ICD-10 - R45.4) 02/11/2025 Anger (ICD-10 - R45.4) 12/24/2024 Anger (ICD-10 - R45.4) Plan Of Treatment No Information Insurance Providers Payer Name Payer Address Payer Phone Subscriber Number Group Number Insured Name Patient Relationship to Insured Coverage Start Date Coverage End Date [facility] [address] [place] [address] [id number] Nabil Narvaez Self - patient is the insured 5 Medical (General) History Medical History History ICD Code add alphapal Surgical History Surgery Date(Month/Year) carpel tunnel 06/2024
--- OUTSIDE RECORDS SUMMARY | 2025-03-12 22:24 | XMS_ITS | Patient Health Record ---
[facility] Address [address] [place] [address] Care Team Providers Care Computer Operations Technician Name Role Phone Dr. Dallas Corbett Primary Care Provider Prelutsky, Fam Unavailable [phone] AvilesAnabela Unavailable [phone] Allergies No Known Allergies Results Component Value Reference Range Notes Basic Metabolic Panel (8) Reviewed date:12/28/2024 09:19:57 PM Interpretation: Performing Lab:[facility], [email or web address], Phone - [phone], Director - Cordelia Notes/Report: Clinical Information:SRC:UR SRC:TH Glucose 93 70-99 mg/dL BUN 15 6-20 mg/dL Creatinine 0.74 0.76-1.27 mg/dL eGFR 122 >59 mL/min/1.73 BUN/Creatinine Ratio 20 9-20 Sodium 137 134-144 mmol/L Potassium 5.2 3.5-5.2 mmol/L Chloride 105 96-106 mmol/L Carbon Dioxide, Total 21 20-29 mmol/L Calcium 9.6 8.7-10.2 mg/dL CBC With Differential/Platel et Reviewed date:09/18/2024 04:55:06 PM Interpretation: Performing Lab:[facility], [address], [place], Phone - [phone], Director - Cordelia Notes/Report: Clinical Information:REF REC@UPL SRC:UR SRC:TH WBC 11.2 3.4-10.8 x10E3/uL RBC 4.47 4.14-5.80 x10E6/uL Hemoglobin 13.1 13.0-17.7 g/dL Hematocrit 41.4 37.5-51.0 % MCV 93 79-97 fL MCH 29.3 26.6-33.0 pg MCHC 31.6 31.5-35.7 g/dL RDW 12.4 11.6-15.4 % Platelets 354 150-450 x10E3/uL Neutrophils 71 Not Estab. % Lymphs 23 Not Estab. % Monocytes 6 Not Estab. % Eos 0 Not Estab. % Basos 0 Not Estab. % Immature Cells INFUSION THERAPY NURSE Neutrophils (Absolute) 7.8 1.4-7.0 x10E3/uL Lymphs (Absolute) 2.6 0.7-3.1 x10E3/uL Monocytes(Absolute) 0.7 0.1-0.9 x10E3/uL Eos (Absolute) 0.1 0.0-0.4 x10E3/uL Baso (Absolute) 0.0 0.0-0.2 x10E3/uL Immature Granulocytes 0 Not Estab. % Immature Grans (Abs) 0.0 0.0-0.1 x10E3/uL NRBC INFUSION THERAPY NURSE Hematology Comments: INFUSION THERAPY NURSE Sedimentation Rate-[place] Reviewed date:09/18/2024 04:55:06 PM Interpretation: Performing Lab:[facility] [address], Phone - [phone], Director - [facility] Notes/Report: Clinical Information:REF REC@UPL SRC:UR SRC:TH Sedimentation Rate-[place] 19 0-15 mm/hr C-Reactive Protein, Quant Reviewed date:09/18/2024 04:55:06 PM Interpretation: Performing Lab:[facility] [address], Phone - [phone], Director - Cordelia Notes/Report: Clinical Information:REF REC@UPL SRC:UR SRC: C-Reactive Protein, Quant 2 0-10 mg/L HIV 1/2 Antibody Panel [id number] 5 Reviewed date:09/18/2024 04:55:06 PM Interpretation: Performing Lab:[facility] [address], Phone - [phone], Director - Cordelia Notes/Report: Clinical Information:REF REC@UPL SRC:UR SRC:TH HIV Ab/p24 Ag Screen Non Reactive Non Reactive HIV-1/HIV-2 antibodies and HIV-1 p24 antigen were NOT detected. There is no laboratory evidence of HIV infection. HIV Negative Chlamydia/GC Amplification Reviewed date:09/18/2024 04:55:06 PM Interpretation: Performing Lab:[facility], [address] [place] [address], Phone - [phone], Director - Stewart Notes/Report: Clinical Information:REF REC@UPL SRC:UR SRC:TH Chlamydia trachomatis, TATYANA Negative Negative Neisseria gonorrhoeae, TATYANA Negative Negative Ct/GC TATYANA, Rectal Reviewed date:09/18/2024 04:55:06 PM Interpretation: Performing Lab:[facility] [place], [address] [place] [address], Phone - [phone], Director - Stewart Notes/Report: Clinical Information:REF REC@UPL SRC:UR SRC:TH C. trachomatis, TATYANA, Rectal Negative Negative N. gonorrhoeae, TATYANA, Rectal Negative Negative Ct/GC TATYANA, Pharyngeal Reviewed date:09/18/2024 04:55:06 PM Interpretation: Performing Lab:[facility], [address] [place] [address], Phone - [phone], Director - Stewart Notes/Report: Clinical Information:REF REC@UPL SRC:UR SRC:TH C. trachomatis, TATYANA, Pharyn Negative Negative N. gonorrhoeae, TATYANA, Pharyn Negative Negative Comp. Metabolic Panel (14) Reviewed date:09/18/2024 04:55:06 PM Interpretation: Performing Lab:[facility] [place], [address] [place] [address], Phone - [phone], Director - Cordelia Notes/Report: Clinical Information:REF REC@UPL SRC:UR SRC:TH Glucose 68 70-99 mg/dL BUN 14 6-20 mg/dL Creatinine 1.06 0.76-1.27 mg/dL eGFR 94 >59 mL/min/1.73 BUN/Creatinine Ratio 13 9-20 Sodium 140 134-144 mmol/L Potassium 4.3 3.5-5.2 mmol/L Chloride 105 96-106 mmol/L Carbon Dioxide, Total 17 20-29 mmol/L Calcium 9.8 8.7-10.2 mg/dL Protein, Total 7.4 6.0-8.5 g/dL Albumin 4.9 4.1-5.1 g/dL Globulin, Total 2.5 1.5-4.5 g/dL Bilirubin, Total 0.6 0.0-1.2 mg/dL Alkaline Phosphatase 30 44-121 IU/L AST (SGOT) 17 0-40 IU/L ALT (SGPT) 6 0-44 IU/L RNA, Real Time PCR (Non-Grap h) Reviewed date:09/18/2024 04:55:06 PM Interpretation: Performing Lab:[facility] [place], [address] [place] [address], Phone - [phone], Director - Tong Notes/Report: Clinical Information:REF REC@UPL SRC:UR SRC:TH HIV-1 RNA by PCR <20 HIV-1 RNA not detected . The reportable range for this assay is 20 to 10,000,000 copies HIV-1 RNA/mL. . log10 HIV-1 RNA TNP Unable to calculate result since non-numeric result obtained for component test. TSH Rfx on Abnormal to Free T4 Reviewed date:09/18/2024 04:55:06 PM Interpretation: Performing Lab:[facility] [place], [address] [place] [address], Phone - [phone], Director - Cordelia Notes/Report: Clinical Information:REF REC@UPL SRC:UR SRC:TH TSH 0.521 0.450-4.500 uIU/mL RPR Reviewed date:06/17/2024 01:35:03 PM Interpretation: Performing Lab:[facility] [place], [address] [place] [address], Phone - [phone], Director - Cordelia Notes/Report: Clinical Information:SRC: SRC:OL RPR Non Reactive Non Reactive HIV 1/2 Antibody Panel [id number] 5 Reviewed date:06/17/2024 01:35:03 PM Interpretation: Performing Lab:[facility] [place], [address] [place] [address], Phone - [phone], Director - Cordelia Notes/Report: Clinical Information:SRC: SRC:OL HIV Ab/p24 Ag Screen Non Reactive Non Reactive HIV-1/HIV-2 antibodies and HIV-1 p24 antigen were NOT detected. There is no laboratory evidence of HIV infection. HIV Negative HCV Antibody Reviewed date:06/17/2024 01:35:04 PM Interpretation: Performing Lab:[facility] [place], [address] [facility], Phone - [phone], Director - Cordelia Notes/Report: Clinical Information:SRC:UC SRC:OL Hep C Virus Ab Non Reactive Non Reactive HCV antibody alone does not differentiate between previously resolved infection and active infection. Equivocal and Reactive HCV antibody results should be followed up with an HCV RNA test to support the diagnosis of active HCV infection. Chlamydia/GC Amplification Reviewed date:06/18/2024 08:20:17 AM Interpretation: Performing Lab:[facility], [address] [place] [address], Phone - [phone], Director - Stewart Notes/Report: Clinical Information:SRC:UC SRC:OL Chlamydia trachomatis, TATYANA Negative Negative Neisseria gonorrhoeae, TATYANA Negative Negative Ct/GC TATYANA, Rectal Reviewed date:06/18/2024 08:20:17 AM Interpretation: Performing Lab:[facility], [address] [place] [address], Phone - [phone], Director - Stewart Notes/Report: Clinical Information:SRC:UC SRC:OL C. trachomatis, TATYANA, Rectal Negative Negative N. gonorrhoeae, TATYANA, Rectal Negative Negative Ct/GC TATYANA, Pharyngeal Reviewed date:06/19/2024 04:01:03 PM Interpretation: Performing Lab:[facility], [address] [place] [address], Phone - [phone], Director - Stewart Notes/Report: Clinical Information:SRC: SRC:OL C. trachomatis, TATYANA, Pharyn Negative Negative N. gonorrhoeae, TATYANA, Pharyn Positive Negative . HIV 1/2 Antibody Panel [id number] 5 Reviewed date:12/28/2024 09:19:57 PM Interpretation: Performing Lab:[facility] [place], [address] [facility], Phone - [phone], Director - Cordelia Notes/Report: Clinical Information:SRC: SRC:TH HIV Ab/p24 Ag Screen Non Reactive Non Reactive HIV-1/HIV-2 antibodies and HIV-1 p24 antigen were NOT detected. There is no laboratory evidence of HIV infection. HIV Negative Chlamydia/GC Amplification Reviewed date:12/28/2024 09:19:57 PM Interpretation: Performing Lab:[facility] [place], Phone - [phone], Director - Stewart Notes/Report: Clinical Information:SRC:UR SRC:TH Chlamydia trachomatis, TATYANA Negative Negative Neisseria gonorrhoeae, TATYANA Negative Negative Ct/GC TATYANA, Rectal Reviewed date:12/28/2024 09:19:57 PM Interpretation: Performing Lab:[facility] [place], [place], Phone - [phone], Director - Stewart Notes/Report: Clinical Information:SRC:UR SRC:TH C. trachomatis, TATYANA, Rectal Negative Negative N. gonorrhoeae, TATYANA, Rectal Negative Negative Ct/GC TATYANA, Pharyngeal Reviewed date:12/28/2024 09:19:57 PM Interpretation: Performing Lab:[facility], [place], Phone - [phone], Director - Stewart Notes/Report: Clinical Information:SRC:UR SRC:TH C. trachomatis, TATYANA, Pharyn Negative Negative N. gonorrhoeae, TATYANA, Pharyn Negative Negative Reason For Referral Reason MDD, possible ADHD Diagnosis 1 MDD (major depressiv e disorder), recurrent episode, mild (F33.0) Referral Organization [facility] Referring Provider First Name Dallas Referring Provider Last Name Aric Referring Provider Speciality Internal M edicine Referred Provider Specialty Psychiatry General Notes Jolene Gruber 09/18 09:32:52 AM > [facility] Referral Priority Routine Medications Medication SIG (Take, Route, Frequency, Duration) Notes Start Date End Date Status traZODone HCl 50 MG 1-2 tablet at bedtim e as needed Orally Once a day; Duration: 30 days Active Descovy 200-25 MG TAKE 1 TABLET BY GABY TH DAILY; Duration: 90 Active Pimecrolimus 1 % 1 application 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 ally Twice a day; Duration: 30 days 12/25/2024 04/23/2025 Active Triamcinolone Acetonide 0.1 % 1 application Externally twice a day; Duration: 30 days 12/25/2024 Active Amphetamine-Dextroamphet ER 10 MG TAKE 1 CAPSULE BY MOUTH DAILY IN THE MORNING Oral Active Propranolol HCl 20 MG TAKE 1 TABLET BY M OUTH TWICE DAILY NEEDED Oral Active Sertraline HCl 150 MG TAKE 1 CAPSULE BY MOUTH EVERY DAY Oral Active Immunizations Vaccine Route Administration Date Status Comm nts Jynneos ID Intradermal 01/25/2022 Administered Jynneos ID Intradermal 03/02/2022 Administered HPV VIRUS VACCINE 9 (Gardasil 9) Unknown 01/12/2022 Administered HPV VIRUS VACCINE 9 (Gardasil 9) IM Intramuscular 03/02/2022 Administered HPV VIRUS VACCINE 9 (Gardasil 9) IM Intramuscular 06/12/2022 Administered Social History Tobacco Use: Social History [...] Problem Status W/U Status Risk Notes Problem Primary insomnia (9102793) Primary insomnia (F51.01) Active confirmed Problem Anxiety (08587592) Anxiety (F41.9) Active confirmed Problem Attention deficit hyperactivity disorder (722527768) Attention deficit hyperactivity disorder (ADHD), unspecified ADHD type (F90.9) Active confirmed Problem Herpes simplex viral infection (40984225) HSV infection (B00.9) Active confirmed Problem Obesity (048833995) Obesity (BMI 30-39.9) (E66.9) Active confirmed Problem Mild recurrent major depression (77233349) MDD (major depressive disorder), recurrent episode, mild (F33.0) Active confirmed Vital Signs Heart Rate 93 /min 12/25/2024 Temperature 97.8 degrees Fahrenheit 12/25/2024 Respiratory Rate 14 /min 12/25/2024 Blood pressure diastolic 62 mm Hg 12/25/2024 Oximetry 98 % 12/25/2024 Height 69 in 12/25/2024 Blood pressure systolic 108 mm Hg 12/25/2024 Weight 228.2 lbs 12/25/2024 BMI 33.7 kg/m2 12/25/2024 Encounters Encounter Location Date Provider Diagnosis [address] [address] 12/25/2024 [facility] Encounter for HIV pre-exposure prophylaxis Z29.81 ; STD exposure Z20.2 ; Exposure to HIV Z20.6 ; Encounter for screening for infections with predominantly sexual mode of transmission Z11.3 ; Encounter for screening for HIV Z11.4 ; Encounter for screening for other viral diseases Z11.59 ; MDD (major depressive disorder), recurrent episode, mild F33.0 ; Decreased libido R68.82 ; Obesity (BMI 30-39.9) E66.9 ; HSV infection B00.9 ; Primary insomnia F51.01 ; Attention deficit hyperactivity disorder (ADHD), unspecified ADHD type F90.9 ; Blurry vision H53.8 ; Anxiety F41.9 ; Rash R21 and Facial dermatitis L30.[address] [address] 09/16/2024 [facility] Encounter for HIV pre-exposure prophylaxis Z29.81 ; STD exposure Z20.2 ; Exposure to HIV Z20.6 ; Encounter for screening for infections with predominantly sexual mode of transmission Z11.3 ; Encounter for screening for HIV Z11.4 ; Encounter for screening for other viral diseases Z11.59 ; MDD (major depressive disorder), recurrent episode, mild F33.0 ; Decreased libido R68.82 ; Obesity (BMI 30-39.9) E66.9 ; HSV infection B00.9 ; Primary insomnia F51.01 and Blurry vision H53.[address] [address] 06/16/2024 Anabela Aviles High risk sexual behavior, unspecified type Z72.51 ; Encounter for screening for infections with predominantly sexual mode of transmission Z11.3 ; Encounter for screening for HIV Z11.4 ; Encounter for screening for other viral diseases Z11.59 and MDD (major depressive disorder), recurrent episode, mild F33.[address] [address] 06/20/2024 [facility] Gonorrhea A54.9 [facility]. [address] [place] [address] 10/14/2024 [facility] Encounter for HIV pre-exposure prophylaxis Z29.[address] [address] 06/19/2024 Anabela Aviles [address] [address] 04/08/[address] [address] 06/16/[address] [address] 05/31/[address] [address] 05/29/2024 [facility] High risk sexual behavior, unspecified type Z72.51 and MDD (major depressive disorder), recurrent episode, mild F33.[address] [address] 05/04/2024 [facility] High risk sexual behavior, unspecified type Z72.[address] [address] 04/11/[address] [address] 03/19/2024 [facility] High risk sexual behavior, unspecified type Z72.51 ; MDD (major depressive disorder), recurrent episode, mild F33.0 and HSV infection B00.9 Assessments Encounter Date Diagnosis (ICD Code) Assessment Notes Treatment Notes Treatment Clinical Notes Section Notes 06/16/2024 High risk sexual behavior, unspecified type (ICD-10 - Z72.51) gave him 3 months samples of Descovy due to nausea 06/20/2024 Gonorrhea (ICD-10 - A54.9) 10/14/2024 Encounter for HIV pre-exposure prophylaxis (ICD-10 - Z29.81) 09/16/2024 STD exposure (ICD-10 - Z20.2) 09/16/2024 Encounter for HIV pre-exposure prophylaxis (ICD-10 - Z29.81) 05/29/2024 High risk sexual behavior, unspecified type (ICD-10 - Z72.51) 05/04/2024 High risk sexual behavior, unspecified type (ICD-10 - Z72.51) 03/19/2024 High risk sexual behavior, unspecified type (ICD-10 - Z72.51) 12/25/2024 STD exposure (ICD-10 - Z20.2) 12/25/2024 Encounter for HIV pre-exposure prophylaxis (ICD-10 - Z29.81) 12/25/2024 Exposure to HIV (ICD-10 - Z20.6) 03/19/2024 MDD (major depressive disorder), recurrent episode, mild (ICD-10 - F33.0) 05/29/2024 MDD (major depressive disorder), recurrent episode, mild (ICD-10 - F33.0) 09/16/2024 Exposure to HIV (ICD-10 - Z20.6) 06/16/2024 Encounter for screening for infections with predominantly sexual mode of transmission (ICD-10 - Z11.3) 06/16/2024 Encounter for screening for HIV (ICD-10 - Z11.4) 09/16/2024 Encounter for screening for infections with predominantly sexual mode of transmission (ICD-10 - Z11.3) 03/19/2024 HSV infection (ICD-10 - B00.9) 12/25/2024 Encounter for screening for infections with predominantly sexual mode of transmission (ICD-10 - Z11.3) 12/25/2024 Encounter for screening for HIV (ICD-10 - Z11.4) 09/16/2024 Encounter for screening for HIV (ICD-10 - Z11.4) 06/16/2024 Encounter for screening for other viral diseases (ICD-10 - Z11.59) 06/16/2024 MDD (major depressive disorder), recurrent episode, mild (ICD-10 - F33.0) 09/16/2024 Encounter for screening for other viral diseases (ICD-10 - Z11.59) 12/25/2024 Encounter for screening for other viral diseases (ICD-10 - Z11.59) 12/25/2024 MDD (major depressive disorder), recurrent episode, mild (ICD-10 - F33.0) 09/16/2024 MDD (major depressive disorder), recurrent episode, mild (ICD-10 - F33.0) Cross taper of Lexapro and Wellbutrin to help mitigate the sexual side effects 09/16/2024 Decreased libido (ICD-10 - R68.82) 12/25/2024 Decreased libido (ICD-10 - R68.82) 12/25/2024 Obesity (BMI 30-39.9) (ICD-10 - E66.9) 09/16/2024 Obesity (BMI 30-39.9) (ICD-10 - E66.9) 09/16/2024 HSV infection (ICD-10 - B00.9) 12/25/2024 HSV infection (ICD-10 - B00.9) 12/25/2024 Primary insomnia (ICD-10 - F51.01) 09/16/2024 Primary insomnia (ICD-10 - F51.01) 12/25/2024 Attention deficit hyperactivity disorder (ADHD), unspecified ADHD type (ICD-10 - F90.9) 12/25/2024 Blurry vision (ICD-10 - H53.8) 09/16/2024 Blurry vision (ICD-10 - H53.8) 12/25/2024 Anxiety (ICD-10 - F41.9) 12/25/2024 Rash (ICD-10 - R21) 12/25/2024 Facial dermatitis (ICD-10 - L30.9) 12/18/2024 Other 06/16/2024 Other Time was spent giving the patient safer sex counseling. Condoms were offered to patient. 09/16/2024 Other 12/25/2024 Other Plan Of Treatment Pending Test Test Name Order Date HIV 1 RNA, QUANTITATIVE REAL TIME PCR Next Appt Details Provider Name:Dallas tate, 03/26/2025 11:40:00 AM, [address] [place], [address], Insurance Providers Payer Name Payer Address Payer Phone Subscriber Number Group Number Insured Name Patient Relationship to Insured Coverage Start Date Coverage End Date [facility] [address] [place] [address] [id number] Nabil Bueno Self - patient is the [...] 3 mL Ceftriaxone 500mg 10/18/2022 500 mg cefTRIAXone Sodium 06/20/2024 500 mg Medical (General) History Medical History [...]
[2025-03-12 22:25] VITALS: BP 120/81; PULSE 90; RESP 20; TEMP 36.6; O2SAT 100
--- NOTE | 2025-03-12 22:29 | ED.CHESTPAIN ---
HPI - Chest Pain General Chief Complaint: Chest Pain Stated Complaint: chest pain Time Seen by Provider: 03/12/25 22:23 Source: patient Mode of arrival: ambulatory Limitations: no limitations History of Present Illness HPI narrative: This is a 34-year-old male with no significant past medical history except for depression anxiety presents with chest discomfort currently not having any chest pain started a couple days ago and denied feels like he is having a panic attack with no shortness of breath currently no chest pain no fever chills no abdominal abdominal pain no nausea vomiting no diarrhea constipation no abdominal pain. Patient is a methamphetamine user and last had meth dose yesterday that he smokes. complaint: chest pain Onset (ago): day(s) Onset: during rest Quality: other (Resolves) Related Data Allergies Allergy/AdvReac Type Severity Reaction Status Date / Time No Known Allergies Allergy Unverified 06/19/24 07:40 Review of Systems Review of Systems: All systems reviewed & are unremarkable except as noted in HPI and below PMFSH Past Medical History Medical History Healthy adult male Surgical History Surgical History No history of previous surgery Exam Const: General: cooperative, healthy appearing, comfortable, no acute distress and well developed Neck: Neck: normal visual inspection, full ROM, no lymphadenopathy and no meningeal signs Chest: Chest palpation & inspection: normal inspection of the chest Resp: Effort & Inspection: normal respiratory effort and able to speak in complete sentences Auscultation: clear to auscultation bilaterally Cardio: Jugular venous distension: no JVD Palpation: normal PMI Rate: regular rate Rhythm: regular rhythm Heart sounds: S1 normal heart sound present and S2 normal heart sound present GI: Inspection: normal to inspection : General: Yes bimanual renal exam normal bilaterally Psych: Affect: Anxious affect present Course Course Emergency Course: Medical decision making narrative: The patient was evaluated by myself in the emergency department. Patient obtained gave a history that was obtained from the patient is in a two-story a physical exam performed witnessed by nurse. Patient had EKG that shows normal sinus rhythm chest x-ray with no acute abnormalities. Patient having a anxiety/panic attack as a history of anxiety and depression Xanax administered 0.5mg p.o.. Repeat assessment: Patient doing well on repeat exam no acute distress Symptoms have improved since arrival to the ED. Repeat vitals are stable Patient agrees with disposition and after shared medical decision-making and agrees with the discharge. All questions answered to the patient's satisfaction. Advised follow-up with primary in the next 3 to 5 days. Critical Care Time Critical Care Time Critical Care Time: No Discharge Plan Discharge Clinical Impression: Panic attack Patient Disposition: Home Condition: Stable Instructions: Antibiotic Form, Panic Attack (ED) Additional Instructions: Advised to follow-up with primary care physician within next 3 to 5 days for evaluation and treatment. Patient Language: Hong Konger Follow-up/Referrals: UNKNOWN,DOCTOR [Primary Care Provider]
[2025-03-12 22:30] VITALS: BP 138/81; PULSE 94; RESP 18; O2SAT 98
[2025-03-12] MEDS: ALPRAZolam (*CRX) 0.5 MG TABLET PO (22:34)
[2025-03-12 22:46] VITALS: BP 108/76; PULSE 84; RESP 14; O2SAT 98
--- OUTSIDE RECORDS SUMMARY | 2025-03-12 22:48 | XMS_ITS | Clinical Summary ---
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 Gender Identity Not on file Sexual Orientation Not on file Last Filed Vital Signs Vital Sign Reading Time Taken Comments Blood Pressure 126/68 06/04/2024 10:45 AM SALES PROGRAM MANAGER Pulse 54 06/04/2024 10:45 AM SALES PROGRAM MANAGER Temperature 36 C (96.8 F) 06/04/2024 10:24 AM SALES PROGRAM MANAGER Respiratory Rate 11 06/04/2024 10:45 AM SALES PROGRAM MANAGER Oxygen Saturation 94% 06/04/2024 10:45 AM SALES PROGRAM MANAGER Inhaled Oxygen Concentration - - Weight 101.2 [...] patient's age to complete this topic Insurance [facility] H[facility]/PPO Address: [place] [address] [facility] H[facility]/PPO Address: [place] [id number] Care Teams Wheel Mill Operator Relationship Specialty Start Date End Date Dallas Corbett DO [address] [place] [address] PCP - General Internal Medicine 09/11/22 [place] [id number] [place] [address] Surgeon Orthopedic Surgery 06/04/24
--- OUTSIDE RECORDS SUMMARY | 2025-03-12 22:48 | XMS_ITS | Clinical Summary ---
Author Organization [facility] Address [address] [place] [address] Care Team Providers Care Medication Tech Name Role Phone Faiza Tala GUZMAN Primary Care Provider [phone] Allergies No known active allergies Medications emtricitabine-te [...] VE NON-REACTI VE 09/03/2017 9:27 PM CDT [facility] 09/03/2017 2:13 PM CDT Tala Kendall NP LABORATORY Final Result [facility] [address] [place] [address], from Last 3 Months or Most Recently Relevant to Health Maintenance Insurance [facility] Care Teams Medication Tech Relationship Specialty Start Date End Date [place] [address] PCP - General 11/20/16
--- OUTSIDE RECORDS SUMMARY | 2025-03-12 22:48 | XMS_ITS | Encounter Summary ---
Author Organization 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
[2025-03-12 23:02] VITALS: BP 108/76; PULSE 84; RESP 14; O2SAT 98
== END 2025-03-12 23:02 | disposition home or self-care (01) ==
LOC: CHSED 22:47
PROVIDERS: Emergency Provider Emergency Medicine
DX: F41.0 Panic disorder [episodic paroxysmal anxiety] (principal); F41.9 Anxiety disorder, unspecified; F32.A Depression, unspecified
CPT/HCPCS: 71045; 93005; 99283; A9270